=== PATIENT | female | born 1975 | race Caucasian/White ===

== ENCOUNTER 2018-06-29 10:59 | Emergency (ER) | payer OTHER, MEDICAID, SELFPAY ==
[2018-06-29 11:00] VITALS: BP 136/76; PULSE 90; RESP 12; TEMP 37.2; O2SAT 99
--- NOTE | 2018-06-29 11:15 | ED.ABDPAIN ---
HPI - Abdominal Pain General Chief Complaint: Abdominal Pain Stated Complaint: 'SOMETHING IS STABBING ME' Time Seen by Provider: 06/29/18 11:11 Source: patient Mode of arrival: ambulatory Limitations: no limitations History of Present Illness HPI narrative: 42-year-old female, nonsmoker presents with a chief complaint of severe epigastric and right upper quadrant pain that started this morning. She states it is worse with motion and palpation, improved with rest and radiates to her back. She denies nausea, vomiting or diarrhea. She has had gallbladder trouble in the past but not in many years. She did drink more than normal last night as it was her day off but pain did not start until this morning. She had some coffee with [employer] at about 8:00 a.m. this morning but is otherwise NPO MD complaint: abdominal pain Onset (ago): hour(s) Pain Consistency: constant Location: RUQ Severity: severe Quality: cramping and aching Radiation: epigastric and back Relieving factors: rest Exacerbating factors: movement Associated symptoms: nausea Related Data Home Medications Medication Instructions Recorded Confirmed cyclobenzaprine 10 mg tablet 10 mg PO TID PRN 04/27/18 06/29/18 Mucinex 1 tab PO PRN PRN 06/29/18 06/29/18 omeprazole 20 mg PO DAILY 06/29/18 06/29/18 Previous Rx's Medication Instructions Recorded fluoxetine 40 mg capsule 40 mg PO DAILY #90 cap 04/27/18 oxycodone-acetaminophen 5 mg-325 1 tab PO Q4-6H PRN #20 tab 04/27/18 mg tablet pantoprazole [Protonix] 40 mg PO BID #60 tab 06/29/18 sucralfate [Carafate] 1 gram PO QACHS #30 tab 06/29/18 Allergies Allergy/AdvReac Type Severity Reaction Status Date / Time ibuprofen AdvReac Mild Ulcers Verified 06/29/18 11:08 Review of Systems Review of Systems All systems reviewed & are unremarkable except as noted in HPI and below Constitutional Denies chills, Denies fever(s), Denies lethargy and Denies weakness Eyes Denies change in vision, Denies eye discharge, Denies irritation and Denies loss of vision ENT Ears, Nose, Mouth, and Throat: Denies change in voice, Denies neck pain and Denies sore throat Cardiovascular Denies chest pain, Denies irregular heart rhythm, Denies lightheadedness, Denies palpitations, Denies dyspnea, Denies dyspnea on exertion and Denies orthopnea Respiratory Denies cough, Denies dyspnea, Denies dyspnea on exertion and Denies wheezing Gastrointestinal Gastrointestinal: Reports abdominal pain, Denies change in bowel habits, Denies diarrhea, Denies nausea and Denies vomiting Genitourinary Denies hematuria, Denies flank pain, Denies urinary incontinence and Denies urinary urgency Musculoskeletal Denies neck pain Integumentary/Breasts Denies pruritus, Denies erythema, Denies rash and Denies wounds Neurologic Denies confusion, Denies loss of vision and Denies weakness Psychiatric Denies anxiety, Denies confusion, Denies depression, Denies homicidal ideation and Denies suicidal ideation Endocrine Denies palpitations Hematologic/Lymphatic Denies easy bruising Allergic/Immunologic Denies wheezing [facility] Medical History Anemia (Chronic) Carpal tunnel syndrome (Chronic) Cervical spine disease (Chronic) Chronic back pain (Chronic) Chronic headaches (Chronic) Depression (Chronic) Fibromyalgia (Chronic) Migraines (Chronic) History of chicken pox (Resolved ~1980) History of painful menstruation (Resolved) Ovarian cyst (Resolved) Surgical History History of (Resolved ~1998) History of carpal tunnel surgery (Resolved ~2007) History of cervical discectomy (Resolved ~2005) History of lumbar discectomy (Resolved ~2002) History of partial hysterectomy (Resolved ~2013) Hx of hysterectomy, total (Resolved) Family History Father Cancer Mother No problems noted. Brother No problems noted. Brother No problems noted. Sister No problems noted. Sister No problems noted. Grandfather No problems noted. Grandmother No problems noted. Grandfather No problems noted. Grandmother No problems noted. Son No problems noted. Social History Smoking Status: Former smoker Tobacco: How many years used: 30 alcohol intake: current (occasional) Exam Narrative Exam Narrative: 42-year-old female, obviously quite uncomfortable, clutching her abdomen Initial Vital Signs Initial Vital Signs: Vital Signs Temperature 99.0 F 06/29/18 11:00 Pulse Rate 90 06/29/18 11:00 Respiratory Rate 12 06/29/18 11:00 Blood Pressure 136/76 06/29/18 11:00 Pulse Oximetry 99 06/29/18 11:00 Const General: cooperative, well developed and acute distress Nutritional Appearance: well nourished Orientation: alert, awake, oriented x3 and not confused [facility] Head: normocephalic and atraumatic Ears: external ears normal and TM's normal bilaterally Nose: external nose normal and No nasal discharge Face and sinus: sinuses nontender, face symmetric, no sinus tenderness and No dry mucous membranes Mouth: oral mucosae normal and moist mucous membranes Teeth and gingiva: dentition normal Throat: tonsils normal and uvula midline Neck Neck: normal visual inspection, trachea midline, No lymphadenopathy, No midline deformity and No JVD Lymphatic: No lymphedema Chest Chest: normal inspection of the chest Cardio Rate: regular rate Rhythm: regular rhythm Heart Sounds: no click, no gallops, no murmurs and no rubs Pulses: normal peripheral pulses GI Inspection: non-distended Palpation: soft, no hepatosplenomegaly, guarding, No pulsatile mass and tender (Quite tender in epigastrium and right upper quadrant with localized guarding) Auscultation: normal bowel sounds Back/Spine/Pelvis Back: No CVA tenderness Cervical Spine: cervical ROM normal and No pain with cervical ROM Thoracic/Lumbar Spine: thoracic and lumbar spine normal to inspection Neuro General: alert, oriented x3, gait normal and no focal motor deficits Speech: speech normal Psych Appearance: well kempt Mental Status: mental status grossly normal Attitude: cooperative Thought Content: normal and suicidality Judgment: judgment good Course Orders Ordered: ED Orders 06/29/18 11:14 US abdomen complete Stat 06/29/18 11:35 Complete Blood Count AUTO DIFF Stat Comprehensive Metabolic Panel Stat Lipase Stat 06/29/18 12:35 CT abdomen pelvis w con Stat 06/29/18 13:33 Urine Culture Stat Urine Microscopic Stat 06/29/18 14:28 Alkaline Phosphatase Stat Bilirubin Total Stat Lipase Stat Discontinued Medications Al Hydrox/Mg Hydrox/Simethicone 20 ml/ Lidocaine HCl 15 ml 0 ml PO NOW ONE Stop: 06/29/18 14:36 Last Admin: 06/29/18 15:02 Dose: 35 ml Hydromorphone HCl (Dilaudid) 1 mg IV Q15M TITI Stop: 06/29/18 11:31 Last Admin: 06/29/18 11:56 Dose: 1 mg Admin: 06/29/18 11:43 Dose: 1 mg Hydromorphone HCl (Dilaudid) 1 mg IV NOW ONE Stop: 06/29/18 14:14 Last Admin: 06/29/18 14:15 Dose: 1 mg Sodium Chloride (Normal Saline 0.9%) 1,000 mls @ 1,000 mls/hr IV BOLUS ONE Stop: 06/29/18 12:12 Last Infusion: 06/29/18 13:19 Dose: 0 mls/hr Admin: 06/29/18 11:44 Dose: 1,000 mls/hr Ondansetron HCl (Zofran) 4 mg IV NOW ONE Stop: 06/29/18 11:14 Last Admin: 06/29/18 11:43 Dose: 4 mg Reevaluation(s) Reevaluation #1: minimal improvement after multiple doses of Dilaudid Reevaluation #2: patient has near complete resolution of symptoms after GI cocktail Consultations Consultation #1: call to Gen surgery after initial exam and US, requests CT. Upon receipt he suggests pain control and DC with follow up Consultation #2: Call to GI at [facility] for completeness whom recommends HIDA at some point with follow up, but despite description of findings suggests a GI cocktail and if helpful recommends PPI given BID and carafate Vital Signs - 8 hr 06/29/18 11:00 06/29/18 12:00 06/29/18 15:49 Temperature 99.0 F Pulse Rate 90 99 H 92 H Respiratory Rate 12 15 Blood Pressure 136/76 127/89 Blood Pressure [Right Arm] 137/87 Pulse Oximetry 99 92 97 MDM - Abdominal Pain Differential Diagnosis Differential diagnosis: Likely abdominal pain, acute appendicitis, pancreatitis and small bowel obstruction Medical Records Attestation: I reviewed the patient's medical records. Lab Data Attestation: I reviewed the patient's lab results. Result diagrams: 06/29/18 11:35 06/29/18 11:35 Lab Results 06/29/18 06/29/18 06/29/18 Range/Units 11:35 11:35 13:33 WBC 12.1 H (4.5-11.0) X10^3/uL RBC 4.47 (4.0-5.2) X10^6/uL Hgb 14.5 (12.0-16.0) g/dL Hct 43.2 (36-46) % MCV 96.6 (80-100) fL MCH 32.5 (26-34) PG MCHC 33.7 (30-36) % RDW 13.7 (11.6-14.8) % Plt Count 274 (150-400) X10^3/uL Neut % (Auto) 75.5 H (50-75) % Lymph % (Auto) 18.5 L (25-40) % Norman % (Auto) 4.7 (3-14) % Eos % (Auto) 0.7 L (2-4) % Baso % (Auto) 0.6 (0-2) % Neut # (Auto) 9100 H (2671-1352) /uL Sodium 142 (137-145) mmol/L Potassium 4.2 (3.4-5.1) mmol/L Chloride 103 (98-107) mmol/L Carbon Dioxide 23 (22-32) mmol/L BUN 16 (7-17) mg/dL Creatinine 0.70 (0.52-1.04) mg/dL Estimated GFR > 60.0 (>60) mL/min BUN/Creatinine Ratio 22.9 H (6-22) Glucose 96 (70-100) mg/dL Calcium 9.6 (8.4-10.2) mg/dL Total Bilirubin 0.7 (0.2-1.3) mg/dL AST 61 H (14-36) IU/L ALT 91 H (9-52) IU/L Alkaline Phosphatase 108 (38-126) U/L Total Protein 8.5 H (6.3-8.2) g/dL Albumin 4.9 (3.5-5.0) g/dL Globulin 3.6 (1.7-4.1) g/dL Albumin/Globulin Ratio 1.4 (1.0-2.8) Lipase 99 (23-300) U/L Urine RBC 5-10/hpf H (0-5/HPF) Urine WBC 5-10/hpf H (0-5/HPF) Urine Bacteria None seen (None) Ur Culture Indicated? Specimen cultured Micro UA Comment Not Reportable 06/29/18 Range/Units 14:28 WBC (4.5-11.0) X10^3/uL RBC (4.0-5.2) X10^6/uL Hgb (12.0-16.0) g/dL Hct (36-46) % MCV (80-100) fL MCH (26-34) PG MCHC (30-36) % RDW (11.6-14.8) % Plt Count (150-400) X10^3/uL Neut % (Auto) (50-75) % Lymph % (Auto) (25-40) % Norman % (Auto) (3-14) % Eos % (Auto) (2-4) % Baso % (Auto) (0-2) % Neut # (Auto) (7698-9878) /uL Sodium (137-145) mmol/L Potassium (3.4-5.1) mmol/L Chloride (98-107) mmol/L Carbon Dioxide (22-32) mmol/L BUN (7-17) mg/dL Creatinine (0.52-1.04) mg/dL Estimated GFR (>60) mL/min BUN/Creatinine Ratio (6-22) Glucose (70-100) mg/dL Calcium (8.4-10.2) mg/dL Total Bilirubin 0.6 (0.2-1.3) mg/dL AST (14-36) IU/L ALT (9-52) IU/L Alkaline Phosphatase 93 (38-126) U/L Total Protein (6.3-8.2) g/dL Albumin (3.5-5.0) g/dL Globulin (1.7-4.1) g/dL Albumin/Globulin Ratio (1.0-2.8) Lipase 78 (23-300) U/L Urine RBC (0-5/HPF) Urine WBC (0-5/HPF) Urine Bacteria (None) Ur Culture Indicated? Micro UA Comment Point of care testing: Urine Dip Bedside Urine Glucose Negative Bedside Urine Bilirubin - Negative Bedside Urine Ketone - Negative Urine Specific Brewer 1.020 Bedside Urine Occult Blood +++ Bedside Urine pH 6.0 Bedside Urine Protein - Negative Bedside Urine Urobilinogen - Negative Bedside Urine Nitrite - Negative Bedside Urine Leukocytes - Negative Esterase Imaging Data US - abdomen: Radiologist's impression: [address] [address] Ultrasound Report Signed Patient: Rosie White [facility]#: [id number] : 1975Acct:[id number] Age/Sex: 42 / FDate of Service: 06/29/18 Loc: ED Accession Number: [id number] Procedure: US abdomen complete Ordering Provider: James Johnson D.O. PROCEDURE: US ABDOMEN COMPLETE INDICATIONS: EPIGASTRIC PAIN RADIATING TO BACK TECHNIQUE: Real-time scanning was performed of the abdominal and retroperitoneal organs, with image documentation. COMPARISON: None. FINDINGS: Liver: The liver is difficult to evaluate related to diffusely increased echogenicity of the hepatic parenchyma when compared to the right kidney. This does result in severe limitation in evaluating the liver parenchyma for liver lesions. No obvious lesion is evident on the provided images. The liver is borderline enlarged at 18.9 cm in craniocaudal dimension. Gallbladder: The gallbladder is normal in size without gallbladder wall thickening, pericholecystic fluid, or cholelithiasis. Biliary ducts: Intrahepatic bile ducts are non-dilated. Extrahepatic bile duct caliber measures 8 mm. Normal is 6-7 mm or less in diameter, or 10 mm or less post-cholecystectomy. Pancreas: Obscured by overlying bowel gas. Spleen: Spleen is normal in size and homogeneous in echotexture. Kidneys: Kidneys are normal in size and echotexture. Right kidney measures 11.5 cm long; left kidney measures 12.1 cm long. No hydronephrosis or nephrolithiasis. No solid masses. Aorta: Visualized aorta is normal in caliber at less than 3 cm. Iliacs: Proximal common iliac arteries are normal in caliber at less than 2.5 cm. IVC: Intrahepatic inferior vena cava is patent. Miscellaneous: No free abdominal fluid. IMPRESSION: 1. No cholelithiasis or evidence of acute cholecystitis. 2. Nonspecific enlargement of the common bile duct is unusual for the patient's age. If there is clinical concern for choledocholithiasis, please consider MRCP for further evaluation. 3. Prominently increased echogenicity of the liver is most likely related to hepatic steatosis. Please correlate clinically. Dictated by: Malcolm Cunningham M.D. on 06/29/2018 at 11:15 Approved by: Malcolm Cunningham M.D. on 06/29/2018 at 11:16 CT scan - abdomen: Radiologist's impression: [address] [address] [address] Scan Report Signed Patient: Rosie White [facility]#: [id number] : 1975Acct:[id number] Age/Sex: 42 / FDate of Service: 06/29/18 Loc: ED Accession Number: [id number] Procedure: CT abdomen pelvis w con Ordering Provider: James Johnson D.O. PROCEDURE: CT ABDOMEN PELVIS W CON INDICATIONS: severe abdominal pain TECHNIQUE: After the administration of intravenous contrast, 5 mm thick sections acquired from the diaphragm to the symphysis. 5 mm coronal and sagittal reformats were acquired. For radiation dose reduction, the following was used: automated exposure control, adjustment of mA and/or kV according to patient size. COMPARISON: [facility], , US ABDOMEN COMPLETE, 06/29/2018, 11:43. FINDINGS: Image quality: Excellent. ABDOMEN: Lung bases: Lung bases are clear. Heart size is normal. Solid organs: The liver is noted to be diffusely hypodense when compared to the spleen. Mild prominence of the wall of the gallbladder is noted. The no focal liver lesions are identified. The common bile duct is prominent in size and measures up to approximately 8 mm in diameter, which is unusual for the patient's age. Questionable gallbladder wall thickening may be present. The spleen is unremarkable. The pancreas and adrenals are within normal limits. The kidneys are unremarkable. Peritoneum and bowel: The stomach is within normal limits. There is a small diverticulum involving the 2nd portion of the duodenum. Otherwise, the duodenum is within normal limits. The small bowel loops are nondilated. The appendix is well-visualized and normal. Moderate residual stool is identified throughout the colon. There is no bowel obstruction. No free fluid, loculated fluid collection or free air is evident. Nodes and vessels: No retroperitoneal or mesenteric adenopathy by size criteria. Aorta and inferior vena cava are normal in size. A retroaortic left renal vein is incidentally noted. Mild atherosclerosis is identified involving the lower abdominal aorta. Bones: No acute fractures or suspicious osseous lesions are evident involving the osseous structures of the abdomen. Age-appropriate degenerative changes of the lower lumbar spine are noted. 2 leads from a spinal stimulator apparatus are seen entering the dorsal aspect of the central canal at the levels of L2 and L1 respectively with the tips terminating at the T8 level. Imaged portions of the wires appear to be intact. Incidental note is made of a moderate sized bony protuberance along the posterior aspect of the right inferior T9 vertebral body, which does result in mild central canal narrowing, but not adequately characterized on this study. PELVIS: Genitourinary: Bladder wall thickness is normal. Miscellaneous: No inguinal hernias or adenopathy. Bones: No suspicious bony lesions. No acute pelvic fractures are evident. There are mild degenerative changes of the sacroiliac joints and bilateral hips. Bone islands within the bilateral femoral heads are present. IMPRESSION: 1. Mild prominence of the wall of the gallbladder was not appreciated on the ultrasound, which is felt to be related to the increased echogenicity of the liver on the recent ultrasound. This does raise the suspicion for possible cholecystitis, particularly given enlargement of the common bile duct. MRCP would be helpful to exclude choledocholithiasis. Clinical correlation to exclude acute cholecystitis or acalculus cholecystitis is recommended. 2. Hepatic steatosis. 3. Small duodenal diverticulum is of doubtful significance. 4. Normal appendix. 5. Moderate residual stool within the colon there are present constipation. No bowel obstruction. 6. Spinal stimulator leads appear to be intact and normally positioned Dictated by: Malcolm Cunningham M.D. on 06/29/2018 at 11:51 Discharge Plan Departure Patient Disposition: Home Clinical Impression: Abdominal pain Discharge Date/Time: 06/29/18 15:52 Interventions: ED Discharge Assessment Last Done: 06/29/18 15:49 Instructions: DI for Dyspepsia Activity Restrictions/Additional Instructions: *You have been diagnosed with [ severe dyspepsia ] *What to do: *Take medications as directed. Electronically transmitted to [facility] [employer] based on your prior requests *Follow up with your primary care provider in 2-3 days, call for an appointment. Let them know you were seen in the Emergency Department and that we ask that you be seen in follow up *Return to ER if you should have any new, worsening or concerning symptoms Prescriptions: New sucralfate [Carafate] 1 gram tablet 1 gram PO QACHS Qty: 30 RF: 0 pantoprazole [Protonix] 40 mg tablet,delayed release (DR/EC) 40 mg PO BID Qty: 60 RF: 0 No Action cyclobenzaprine 10 mg tablet 10 mg PO TID PRN (Reason: Spasms) RF: 0 fluoxetine [Prozac] 40 mg capsule 40 mg PO DAILY Qty: 90 RF: 3 oxycodone-acetaminophen [Endocet] 5-325 mg tablet 1 tab PO Q4-6H PRN (Reason: pain) Qty: 20 RF: 0 omeprazole 20 mg Tablet,Delayed Release (Dr/Ec) 20 mg PO DAILY RF: 0 Mucinex 1 tab PO PRN PRN (Reason: Congestion) RF: 0 Referrals: Karel Watson MD [Non-Staff] - Aniya Lima DO [Primary Care Provider] -
--- NOTE | 2018-06-29 11:32 | ED_ITS ---
HPI - Abdominal Pain General Chief Complaint: Abdominal Pain Stated Complaint: 'SOMETHING IS STABBING ME' Time Seen by Provider: 06/29/18 11:11 Source: patient Mode of arrival: ambulatory Limitations: no limitations History of Present Illness HPI narrative: 42-year-old female, nonsmoker presents with a chief complaint of severe epigastric and right upper quadrant pain that started this morning. She states it is worse with motion and palpation, improved with rest and radiates to her back. She denies nausea, vomiting or diarrhea. She has had gallbladder trouble in the past but not in many years. She did drink more than normal last night as it was her day off but pain did not start until this morning. She had some coffee with [employer] at about 8:00 a.m. this morning but is otherwise NPO MD complaint: abdominal pain Onset (ago): hour(s) Pain Consistency: constant Location: RUQ Severity: severe Quality: cramping and aching Radiation: epigastric and back Relieving factors: rest Exacerbating factors: movement Associated symptoms: nausea Related Data Home Medications Medication Instructions Recorded Confirmed cyclobenzaprine 10 mg tablet 10 mg PO TID PRN 04/27/18 06/29/18 Mucinex 1 tab PO PRN PRN 06/29/18 06/29/18 omeprazole 20 mg PO DAILY 06/29/18 06/29/18 Previous Rx's Medication Instructions Recorded fluoxetine 40 mg capsule 40 mg PO DAILY #90 cap 04/27/18 oxycodone-acetaminophen 5 mg-325 1 tab PO Q4-6H PRN #20 tab 04/27/18 mg tablet pantoprazole [Protonix] 40 mg PO BID #60 tab 06/29/18 sucralfate [Carafate] 1 gram PO QACHS #30 tab 06/29/18 Allergies Allergy/AdvReac Type Severity Reaction Status Date / Time ibuprofen AdvReac Mild Ulcers Verified 06/29/18 11:08 Review of Systems Review of Systems All systems reviewed & are unremarkable except as noted in HPI and below Constitutional Denies chills, Denies fever(s), Denies lethargy and Denies weakness Eyes Denies change in vision, Denies eye discharge, Denies irritation and Denies loss of vision ENT Ears, Nose, Mouth, and Throat: Denies change in voice, Denies neck pain and Denies sore throat Cardiovascular Denies chest pain, Denies irregular heart rhythm, Denies lightheadedness, Denies palpitations, Denies dyspnea, Denies dyspnea on exertion and Denies orthopnea Respiratory Denies cough, Denies dyspnea, Denies dyspnea on exertion and Denies wheezing Gastrointestinal Gastrointestinal: Reports abdominal pain, Denies change in bowel habits, Denies diarrhea, Denies nausea and Denies vomiting Genitourinary Denies hematuria, Denies flank pain, Denies urinary incontinence and Denies urinary urgency Musculoskeletal Denies neck pain Integumentary/Breasts Denies pruritus, Denies erythema, Denies rash and Denies wounds Neurologic Denies confusion, Denies loss of vision and Denies weakness Psychiatric Denies anxiety, Denies confusion, Denies depression, Denies homicidal ideation and Denies suicidal ideation Endocrine Denies palpitations Hematologic/Lymphatic Denies easy bruising Allergic/Immunologic Denies wheezing [facility] Medical History Anemia (Chronic) Carpal tunnel syndrome (Chronic) Cervical spine disease (Chronic) Chronic back pain (Chronic) Chronic headaches (Chronic) Depression (Chronic) Fibromyalgia (Chronic) Migraines (Chronic) History of chicken pox (Resolved ~1980) History of painful menstruation (Resolved) Ovarian cyst (Resolved) Surgical History History of (Resolved ~1998) History of carpal tunnel surgery (Resolved ~2007) History of cervical discectomy (Resolved ~2005) History of lumbar discectomy (Resolved ~2002) History of partial hysterectomy (Resolved ~2013) Hx of hysterectomy, total (Resolved) Family History Father Cancer Mother No problems noted. Brother No problems noted. Brother No problems noted. Sister No problems noted. Sister No problems noted. Grandfather No problems noted. Grandmother No problems noted. Grandfather No problems noted. Grandmother No problems noted. Son No problems noted. Social History Smoking Status: Former smoker Tobacco: How many years used: 30 alcohol intake: current (occasional) Exam Narrative Exam Narrative: 42-year-old female, obviously quite uncomfortable, clutching her abdomen Initial Vital Signs Initial Vital Signs: Vital Signs Temperature 99.0 F 06/29/18 11:00 Pulse Rate 90 06/29/18 11:00 Respiratory Rate 12 06/29/18 11:00 Blood Pressure 136/76 06/29/18 11:00 Pulse Oximetry 99 06/29/18 11:00 Const General: cooperative, well developed and acute distress Nutritional Appearance: well nourished Orientation: alert, awake, oriented x3 and not confused [facility] Head: normocephalic and atraumatic Ears: external ears normal and TM's normal bilaterally Nose: external nose normal and No nasal discharge Face and sinus: sinuses nontender, face symmetric, no sinus tenderness and No dry mucous membranes Mouth: oral mucosae normal and moist mucous membranes Teeth and gingiva: dentition normal Throat: tonsils normal and uvula midline Neck Neck: normal visual inspection, trachea midline, No lymphadenopathy, No midline deformity and No JVD Lymphatic: No lymphedema Chest Chest: normal inspection of the chest Cardio Rate: regular rate Rhythm: regular rhythm Heart Sounds: no click, no gallops, no murmurs and no rubs Pulses: normal peripheral pulses GI Inspection: non-distended Palpation: soft, no hepatosplenomegaly, guarding, No pulsatile mass and tender ( Quite tender in epigastrium and right upper quadrant with localized guarding) Auscultation: normal bowel sounds Back/Spine/Pelvis Back: No CVA tenderness Cervical Spine: cervical ROM normal and No pain with cervical ROM Thoracic/Lumbar Spine: thoracic and lumbar spine normal to inspection Neuro General: alert, oriented x3, gait normal and no focal motor deficits Speech: speech normal Psych Appearance: well kempt Mental Status: mental status grossly normal Attitude: cooperative Thought Content: normal and suicidality Judgment: judgment good Course Orders Ordered: ED Orders 06/29/18 11:14 US abdomen complete Stat 06/29/18 11:35 Complete Blood Count AUTO DIFF Stat Comprehensive Metabolic Panel Stat Lipase Stat 06/29/18 12:35 CT abdomen pelvis w con Stat 06/29/18 13:33 Urine Culture Stat Urine Microscopic Stat 06/29/18 14:28 Alkaline Phosphatase Stat Bilirubin Total Stat Lipase Stat Discontinued Medications Al Hydrox/Mg Hydrox/Simethicone 20 ml/ Lidocaine HCl 15 ml 0 ml PO NOW ONE Stop: 06/29/18 14:36 Last Admin: 06/29/18 15:02 Dose: 35 ml Hydromorphone HCl (Dilaudid) 1 mg IV Q15M TITI Stop: 06/29/18 11:31 Last Admin: 06/29/18 11:56 Dose: 1 mg Admin: 06/29/18 11:43 Dose: 1 mg Hydromorphone HCl (Dilaudid) 1 mg IV NOW ONE Stop: 06/29/18 14:14 Last Admin: 06/29/18 14:15 Dose: 1 mg Sodium Chloride (Normal Saline 0.9%) 1,000 mls @ 1,000 mls/hr IV BOLUS ONE Stop: 06/29/18 12:12 Last Infusion: 06/29/18 13:19 Dose: 0 mls/hr Admin: 06/29/18 11:44 Dose: 1,000 mls/hr Ondansetron HCl (Zofran) 4 mg IV NOW ONE Stop: 06/29/18 11:14 Last Admin: 06/29/18 11:43 Dose: 4 mg Reevaluation(s) Reevaluation #1: minimal improvement after multiple doses of Dilaudid Reevaluation #2: patient has near complete resolution of symptoms after GI cocktail Consultations Consultation #1: call to Gen surgery after initial exam and US, requests CT. Upon receipt he suggests pain control and DC with follow up Consultation #2: Call to GI at [facility] for completeness whom recommends HIDA at some point with follow up, but despite description of findings suggests a GI cocktail and if helpful recommends PPI given BID and carafate Vital Signs - 8 hr 06/29/18 11:00 06/29/18 12:00 06/29/18 15:49 Temperature 99.0 F Pulse Rate 90 99 H 92 H Respiratory Rate 12 15 Blood Pressure 136/76 127/89 Blood Pressure [Right Arm] 137/87 Pulse Oximetry 99 92 97 MDM - Abdominal Pain Differential Diagnosis Differential diagnosis: Likely abdominal pain, acute appendicitis, pancreatitis and small bowel obstruction Medical Records Attestation: I reviewed the patient's medical records. Lab Data Attestation: I reviewed the patient's lab results. Result diagrams: 06/29/18 11:35 06/29/18 11:35 Lab Results 06/29/18 06/29/18 06/29/18 Range/Units 11:35 11:35 13:33 WBC 12.1 H (4.5-11.0) X10^3/uL RBC 4.47 (4.0-5.2) X10^6/uL Hgb 14.5 (12.0-16.0) g/dL Hct 43.2 (36-46) % MCV 96.6 (80-100) fL MCH 32.5 (26-34) PG MCHC 33.7 (30-36) % RDW 13.7 (11.6-14.8) % Plt Count 274 (150-400) X10^3/uL Neut % (Auto) 75.5 H (50-75) % Lymph % (Auto) 18.5 L (25-40) % [place] % (Auto) 4.7 (3-14) % Eos % (Auto) 0.7 L (2-4) % Baso % (Auto) 0.6 (0-2) % Neut # (Auto) 9100 H (1806-4307) /uL Sodium 142 (137-145) mmol/L Potassium 4.2 (3.4-5.1) mmol/L Chloride 103 (98-107) mmol/L Carbon Dioxide 23 (22-32) mmol/L BUN 16 (7-17) mg/dL Creatinine 0.70 (0.52-1.04) mg/dL Estimated GFR > 60.0 (>60) mL/min BUN/Creatinine Ratio 22.9 H (6-22) Glucose 96 (70-100) mg/dL Calcium 9.6 (8.4-10.2) mg/dL Total Bilirubin 0.7 (0.2-1.3) mg/dL AST 61 H (14-36) IU/L ALT 91 H (9-52) IU/L Alkaline Phosphatase 108 (38-126) U/L Total Protein 8.5 H (6.3-8.2) g/dL Albumin 4.9 (3.5-5.0) g/dL Globulin 3.6 (1.7-4.1) g/dL Albumin/Globulin Ratio 1.4 (1.0-2.8) Lipase 99 (23-300) U/L Urine RBC 5-10/hpf H (0-5/HPF) Urine WBC 5-10/hpf H (0-5/HPF) Urine Bacteria None seen (None) Ur Culture Indicated? Specimen cultured Micro UA Comment Not Reportable 06/29/18 Range/Units 14:28 WBC (4.5-11.0) X10^3/uL RBC (4.0-5.2) X10^6/uL Hgb (12.0-16.0) g/dL Hct (36-46) % MCV (80-100) fL MCH (26-34) PG MCHC (30-36) % RDW (11.6-14.8) % Plt Count (150-400) X10^3/uL Neut % (Auto) (50-75) % Lymph % (Auto) (25-40) % [place] % (Auto) (3-14) % Eos % (Auto) (2-4) % Baso % (Auto) (0-2) % Neut # (Auto) (0722-5185) /uL Sodium (137-145) mmol/L Potassium (3.4-5.1) mmol/L Chloride (98-107) mmol/L Carbon Dioxide (22-32) mmol/L BUN (7-17) mg/dL Creatinine (0.52-1.04) mg/dL Estimated GFR (>60) mL/min BUN/Creatinine Ratio (6-22) Glucose (70-100) mg/dL Calcium (8.4-10.2) mg/dL Total Bilirubin 0.6 (0.2-1.3) mg/dL AST (14-36) IU/L ALT (9-52) IU/L Alkaline Phosphatase 93 (38-126) U/L Total Protein (6.3-8.2) g/dL Albumin (3.5-5.0) g/dL Globulin (1.7-4.1) g/dL Albumin/Globulin Ratio (1.0-2.8) Lipase 78 (23-300) U/L Urine RBC (0-5/HPF) Urine WBC (0-5/HPF) Urine Bacteria (None) Ur Culture Indicated? Micro UA Comment Point of care testing: Urine Dip Bedside Urine Glucose Negative Bedside Urine Bilirubin - Negative Bedside Urine Ketone - Negative Urine Specific [place] 1.020 Bedside Urine Occult Blood +++ Bedside Urine pH 6.0 Bedside Urine Protein - Negative Bedside Urine Urobilinogen - Negative Bedside Urine Nitrite - Negative Bedside Urine Leukocytes - Negative Esterase Imaging Data US - abdomen: Radiologist's impression: [address] [address] Ultrasound Report Signed Patient: Rosie White [facility]#: [id number] : 1975Acct:[id number] Age/Sex: 42 / FDate of Service: 06/29/18 Loc: ED Accession Number: [id number] Procedure: US abdomen complete Ordering Provider: James Johnson D.O. PROCEDURE: US ABDOMEN COMPLETE INDICATIONS: EPIGASTRIC PAIN RADIATING TO BACK TECHNIQUE: Real-time scanning was performed of the abdominal and retroperitoneal organs, with image documentation. COMPARISON: None. FINDINGS: Liver: The liver is difficult to evaluate related to diffusely increased echogenicity of the hepatic parenchyma when compared to the right kidney. This does result in severe limitation in evaluating the liver parenchyma for liver lesions. No obvious lesion is evident on the provided images. The liver is borderline enlarged at 18.9 cm in craniocaudal dimension. Gallbladder: The gallbladder is normal in size without gallbladder wall thickening, pericholecystic fluid, or cholelithiasis. Biliary ducts: Intrahepatic bile ducts are non-dilated. Extrahepatic bile duct caliber measures 8 mm. Normal is 6-7 mm or less in diameter, or 10 mm or less post-cholecystectomy. Pancreas: Obscured by overlying bowel gas. Spleen: Spleen is normal in size and homogeneous in echotexture. Kidneys: Kidneys are normal in size and echotexture. Right kidney measures 11.5 cm long; left kidney measures 12.1 cm long. No hydronephrosis or nephrolithiasis. No solid masses. Aorta: Visualized aorta is normal in caliber at less than 3 cm. Iliacs: Proximal common iliac arteries are normal in caliber at less than 2.5 cm. IVC: Intrahepatic inferior vena cava is patent. Miscellaneous: No free abdominal fluid. IMPRESSION: 1. No cholelithiasis or evidence of acute cholecystitis. 2. Nonspecific enlargement of the common bile duct is unusual for the patient' s age. If there is clinical concern for choledocholithiasis, please consider MRCP for further evaluation. 3. Prominently increased echogenicity of the liver is most likely related to hepatic steatosis. Please correlate clinically. Dictated by: Malcolm Cunningham M.D. on 06/29/2018 at 11:15 Approved by: Malcolm Cunningham M.D. on 06/29/2018 at 11:16 CT scan - abdomen: Radiologist's impression: [address] [address] [address] Scan Report Signed Patient: Rosie White [facility]#: [id number] : 1975Acct:[id number] Age/Sex: 42 / FDate of Service: 06/29/18 Loc: ED Accession Number: [id number] Procedure: CT abdomen pelvis w con Ordering Provider: James Johnson D.O. PROCEDURE: CT ABDOMEN PELVIS W CON INDICATIONS: severe abdominal pain TECHNIQUE: After the administration of intravenous contrast, 5 mm thick sections acquired from the diaphragm to the symphysis. 5 mm coronal and sagittal reformats were acquired. For radiation dose reduction, the following was used: automated exposure control, adjustment of mA and/or kV according to patient size. COMPARISON: [facility], , US ABDOMEN COMPLETE, 06/29/2018, 11:43. FINDINGS: Image quality: Excellent. ABDOMEN: Lung bases: Lung bases are clear. Heart size is normal. Solid organs: The liver is noted to be diffusely hypodense when compared to the spleen. Mild prominence of the wall of the gallbladder is noted. The no focal liver lesions are identified. The common bile duct is prominent in size and measures up to approximately 8 mm in diameter, which is unusual for the patient's age. Questionable gallbladder wall thickening may be present. The spleen is unremarkable. The pancreas and adrenals are within normal limits. The kidneys are unremarkable. Peritoneum and bowel: The stomach is within normal limits. There is a small diverticulum involving the 2nd portion of the duodenum. Otherwise, the duodenum is within normal limits. The small bowel loops are nondilated. The appendix is well-visualized and normal. Moderate residual stool is identified throughout the colon. There is no bowel obstruction. No free fluid, loculated fluid collection or free air is evident. Nodes and vessels: No retroperitoneal or mesenteric adenopathy by size criteria. Aorta and inferior vena cava are normal in size. A retroaortic left renal vein is incidentally noted. Mild atherosclerosis is identified involving the lower abdominal aorta. Bones: No acute fractures or suspicious osseous lesions are evident involving the osseous structures of the abdomen. Age-appropriate degenerative changes of the lower lumbar spine are noted. 2 leads from a spinal stimulator apparatus are seen entering the dorsal aspect of the central canal at the levels of L2 and L1 respectively with the tips terminating at the T8 level. Imaged portions of the wires appear to be intact. Incidental note is made of a moderate sized bony protuberance along the posterior aspect of the right inferior T9 vertebral body, which does result in mild central canal narrowing, but not adequately characterized on this study. PELVIS: Genitourinary: Bladder wall thickness is normal. Miscellaneous: No inguinal hernias or adenopathy. Bones: No suspicious bony lesions. No acute pelvic fractures are evident. There are mild degenerative changes of the sacroiliac joints and bilateral hips. Bone islands within the bilateral femoral heads are present. IMPRESSION: 1. Mild prominence of the wall of the gallbladder was not appreciated on the ultrasound, which is felt to be related to the increased echogenicity of the liver on the recent ultrasound. This does raise the suspicion for possible cholecystitis, particularly given enlargement of the common bile duct. MRCP would be helpful to exclude choledocholithiasis. Clinical correlation to exclude acute cholecystitis or acalculus cholecystitis is recommended. 2. Hepatic steatosis. 3. Small duodenal diverticulum is of doubtful significance. 4. Normal appendix. 5. Moderate residual stool within the colon there are present constipation. No bowel obstruction. 6. Spinal stimulator leads appear to be intact and normally positioned Dictated by: Malcolm Cunningham M.D. on 06/29/2018 at 11:51 Discharge Plan Departure Patient Disposition: Home Clinical Impression: Abdominal pain Discharge Date/Time: 06/29/18 15:52 Interventions: ED Discharge Assessment Last Done: 06/29/18 15:49 Instructions: DI for Dyspepsia Activity Restrictions/Additional Instructions: *You have been diagnosed with [ severe dyspepsia ] *What to do: *Take medications as directed. Electronically transmitted to [employer] in [place] based on your prior requests *Follow up with your primary care provider in 2-3 days, call for an appointment. Let them know you were seen in the Emergency Department and that we ask that you be seen in follow up *Return to ER if you should have any new, worsening or concerning symptoms Prescriptions: New sucralfate [Carafate] 1 gram tablet 1 gram PO QACHS Qty: 30 RF: 0 pantoprazole [Protonix] 40 mg tablet,delayed release (DR/EC) 40 mg PO BID Qty: 60 RF: 0 No Action cyclobenzaprine 10 mg tablet 10 mg PO TID PRN (Reason: Spasms) RF: 0 fluoxetine [Prozac] 40 mg capsule 40 mg PO DAILY Qty: 90 RF: 3 oxycodone-acetaminophen [Endocet] 5-325 mg tablet 1 tab PO Q4-6H PRN (Reason: pain) Qty: 20 RF: 0 omeprazole 20 mg Tablet,Delayed Release (Dr/Ec) 20 mg PO DAILY RF: 0 Mucinex 1 tab PO PRN PRN (Reason: Congestion) RF: 0 Referrals: Karel Watson MD [Non-Staff] - Aniya Lima DO [Primary Care Provider] -
[2018-06-29] MEDS: HYDROMORPHONE 1 MG INJ IV ×3 (11:43→14:15)
[2018-06-29] MEDS: ONDANSETRON 4 MG/2 ML INJ IV (11:43)
[2018-06-29] MEDS: SODIUM CHLORIDE 0.9% 1,000 ML 1000 ML IV (11:44)
[2018-06-29 11:51] LABS: Add Manual Diff / Slide Review NO; Basophils Percent Auto 0.6 % (0-2); Eosinophils Percent Auto 0.7 % (2-4); Hematocrit 43.2 % (36-46); Hemoglobin 14.5 g/dL (12.0-16.0); Lymphocytes Percent Auto 18.5 % (25-40); Mean Corpuscular HGB Conc 33.7 % (30-36); Mean Corpuscular Hemoglobin 32.5 PG (26-34); Mean Corpuscular Volume 96.6 fL (80-100); Monocytes Percent Auto 4.7 % (3-14); Neutrophils Absolute Auto 9100 /uL (3000-5900); Neutrophils Percent Auto 75.5 % (50-75); Platelet Count 274 X10^3/uL (150-400); Red Blood Cell Count 4.47 X10^6/uL (4.0-5.2); Red Cell Distribution Width 13.7 % (11.6-14.8); White Blood Cell Count 12.1 X10^3/uL (4.5-11.0)
[2018-06-29 12:00] VITALS: BP 137/87; PULSE 99; O2SAT 92
[2018-06-29 12:00] LABS: Alanine Aminotransferase 91 IU/L (9-52); Albumin 4.9 g/dL (3.5-5.0); Albumin Globulin Ratio 1.4 (1.0-2.8); Alkaline Phosphatase 108 U/L (38-126); Aspartate Aminotransferase 61 IU/L (14-36); BUN Creatinine Ratio 22.9 (6-22); Bilirubin Total 0.7 mg/dL (0.2-1.3); Blood Urea Nitrogen 16 mg/dL (7-17); Calcium 9.6 mg/dL (8.4-10.2); Carbon Dioxide 23 mmol/L (22-32); Chloride 103 mmol/L (98-107); Estimated Glomerular Filt Rate > 60.0 mL/min (>60); Globulin 3.6 g/dL (1.7-4.1); Glucose 96 mg/dL (70-100); HEMOLYSIS < 15 (0-50); Lipase 99 U/L (23-300); Potassium 4.2 mmol/L (3.4-5.1); Sodium 142 mmol/L (137-145); Total Protein 8.5 g/dL (6.3-8.2)
--- NOTE | 2018-06-29 12:35 | DI.CT.S_ITS ---
PROCEDURE: CT ABDOMEN PELVIS W CON INDICATIONS: severe abdominal pain TECHNIQUE: After the administration of intravenous contrast, 5 mm thick sections acquired from the diaphragm to the symphysis. 5 mm coronal and sagittal reformats were acquired. For radiation dose reduction, the following was used: automated exposure control, adjustment of mA and/or kV according to patient size. COMPARISON: [facility], , US ABDOMEN COMPLETE, 06/29/2018, 11:43. FINDINGS: Image quality: Excellent. ABDOMEN: Lung bases: Lung bases are clear. Heart size is normal. Solid organs: The liver is noted to be diffusely hypodense when compared to the spleen. Mild prominence of the wall of the gallbladder is noted. The no focal liver lesions are identified. The common bile duct is prominent in size and measures up to approximately 8 mm in diameter, which is unusual for the patient's age. Questionable gallbladder wall thickening may be present. The spleen is unremarkable. The pancreas and adrenals are within normal limits. The kidneys are unremarkable. Peritoneum and bowel: The stomach is within normal limits. There is a small diverticulum involving the 2nd portion of the duodenum. Otherwise, the duodenum is within normal limits. The small bowel loops are nondilated. The appendix is well-visualized and normal. Moderate residual stool is identified throughout the colon. There is no bowel obstruction. No free fluid, loculated fluid collection or free air is evident. Nodes and vessels: No retroperitoneal or mesenteric adenopathy by size criteria. Aorta and inferior vena cava are normal in size. A retroaortic left renal vein is incidentally noted. Mild atherosclerosis is identified involving the lower abdominal aorta. Bones: No acute fractures or suspicious osseous lesions are evident involving the osseous structures of the abdomen. Age-appropriate degenerative changes of the lower lumbar spine are noted. 2 leads from a spinal stimulator apparatus are seen entering the dorsal aspect of the central canal at the levels of L2 and L1 respectively with the tips terminating at the T8 level. Imaged portions of the wires appear to be intact. Incidental note is made of a moderate sized bony protuberance along the posterior aspect of the right inferior T9 vertebral body, which does result in mild central canal narrowing, but not adequately characterized on this study. PELVIS: Genitourinary: Bladder wall thickness is normal. Miscellaneous: No inguinal hernias or adenopathy. Bones: No suspicious bony lesions. No acute pelvic fractures are evident. There are mild degenerative changes of the sacroiliac joints and bilateral hips. Bone islands within the bilateral femoral heads are present. IMPRESSION: 1. Mild prominence of the wall of the gallbladder was not appreciated on the ultrasound, which is felt to be related to the increased echogenicity of the liver on the recent ultrasound. This does raise the suspicion for possible cholecystitis, particularly given enlargement of the common bile duct. MRCP would be helpful to exclude choledocholithiasis. Clinical correlation to exclude acute cholecystitis or acalculus cholecystitis is recommended. 2. Hepatic steatosis. 3. Small duodenal diverticulum is of doubtful significance. 4. Normal appendix. 5. Moderate residual stool within the colon there are present constipation. No bowel obstruction. 6. Spinal stimulator leads appear to be intact and normally positioned Dictated by: Malcolm Cunningham M.D. on 06/29/2018 at 11:51 Approved by: Malcolm Cunningham M.D. on 06/29/2018 at 12:00
[2018-06-29 13:37] LABS: Bacteria Urine None Seen
[2018-06-29 13:44] LABS: Culture Indicated Urine Specimen Cultured; RBC Urine 5-10/HPF (0-5/HPF); WBC Urine 5-10/HPF (0-5/HPF)
[2018-06-29 14:45] LABS: Alkaline Phosphatase 93 U/L (38-126); Bilirubin Total 0.6 mg/dL (0.2-1.3); Lipase 78 U/L (23-300)
[2018-06-29] MEDS: MAG HYDROX/ALUMINUM/SIMETH SUS 20 ML, LIDOCAINE VISCOUS 2% 15 ML PO (15:02)
[2018-06-29 15:49] VITALS: BP 127/89; PULSE 92; RESP 15; O2SAT 97
== END 2018-06-29 15:52 | disposition home or self-care (01) ==
PROVIDERS: Emergency Provider Emergency Medicine; PCP Family Medicine
DX: R10.9 Unspecified abdominal pain (principal)
CPT/HCPCS: 36415; 36591; 74177; 76700; 80053; 81003; 81015; 82247; 83690; 84075; 85025; 87086; 96361; 96374; 96375; 96376; 99283; 99285; J1170; J2405; Q9967

== ENCOUNTER 2018-08-24 07:17 | Day surgery (SDC) | payer OTHER, MEDICAID, SELFPAY ==
[2018-08-24] VITALS (8 sets, daily range): BP systolic 111–151; BP diastolic 65–91; PULSE 69–87; RESP 13–16; TEMP 36.2–36.8; O2SAT 94–100; BMI 33.2
--- NOTE | 2018-08-24 | PATH_ITS ---
[facility] Accession Number: [id number] . 01 Material submitted: . PART A: ANTRAL BIOPSY PART B: GE JUNCTION BIOPSY . 02 Diagnosis: A. Stomach, Antrum, Biopsy: Antral mucosa with mild chronic gastritis. Negative for Helicobacter by immunohistochemistry. Negative for intestinal metaplasia. Negative for dysplasia and malignancy. . B. Gastroesophageal Junction, Biopsy: Squamocolumnar junctional mucosa with mild chronic inflammation. Negative for intestinal metaplasia by alcian blue stain. Negative for dysplasia and malignancy. [facility]/08/29/2018 . 02 Electronically signed: . Jaylene Reece MD, Pathologist NPI- [id number] . 01 Gross description: . Part A: ANTRAL BIOPSY: Received in formalin are multiple fragment(s) of garcia, soft tissue measuring 0.5 x 0.5 x 0.2 cm in aggregate submitted entirely in 1 cassette(s) Part B: GE JUNCTION BIOPSY: Received in formalin are multiple fragment(s) of garcia, soft tissue measuring 0.7 x 0.5 x 0.3 cm in aggregate submitted entirely in 1 cassette(s) /CKI /CKI . 02 Microscopic: . A. An immunohistochemical stain was performed to evaluate for Helicobacter organisms and is negative. The control stain showed appropriate reactivity. . B. An AB/PAS stain was performed to evaluate for intestinal metaplasia and is negative. The control stain showed appropriate reactivity. . * This test was developed and its performance characteristics determined by [employer]. It has not been cleared or approved by the U.S. Food and Drug Administration. The FDA has determined that such clearance or approval is not necessary. This test is used for clinical purposes. It should not be regarded as investigational or for research. . 02 Pathologist provided ICD-10: R10.9 . 02 CPT . 002536, 783032, F98676, 350820 Performed at: 01 [facility] [address] [place] [address], [place], [place] [id number] MD Felton Rodriguez MD Phone: [phone] Performed at: [address] [facility] [id number] [place], [place] [id number] MD Jaylene Reece MD Phone: [phone]
[2018-08-24] MEDS: SODIUM CHLORIDE 0.9% 1,000 ML 200 ML IV (07:48)
--- NOTE | 2018-08-24 08:45 | PM.PREOP ---
Pre-operative Note Interval Note History & Physical reviewed/Exam performed by Physician: Yes Changes to H&P: No H&P completed within 30 days and has changed as indicated here:: Patient seen and examined in preoperative area. Her history physical examination is documented August 07, 2018 has not changed. We will proceed with EGD and possible dilatation under sedation today as planned. ASA Class (for procedural sedation): II
[2018-08-24] MEDS: TETRACAINE/BENZOCAINE/BUTAMBEN (CETACAINE) BOTTLE 1 SPRAY TOP (08:55)
[2018-08-24] MEDS: LIDOCAINE 4% SOLN 50 ML 20 ML TOP (08:56)
[2018-08-24] MEDS: fentaNYL 250 MCG/5 ML INJ IV (09:08)
[2018-08-24] MEDS: MIDAZOLAM 5 MG/5 ML VIAL IV (09:08)
--- NOTE | 2018-08-24 09:15 | P.OP.ENDO_ITS ---
Operative Date/Time/Diagnoses Date of procedure: 08/24/18 Time of procedure: 09:11 Pre-op diagnosis: Dysphagia and epigastric pain Post-op diagnosis: other (Mild diffuse gastritis and focal esophagitis at the gastroesophageal junction but otherwise normal upper endoscopy) Procedure & Clinicians Study performed: 1. Sedation per surgeon 2. Esophagogastroduodenoscopy with cold forceps biopsies Same procedure as scheduled: Yes Indications: 42-year-old female who presented with epigastric pain and dysphagia. She was recommended to undergo EGD with potential dilatation. Surgeon: Sonny Barboza Procedure Notes Procedure in detail: After obtaining informed consent, the patient was brought to the GI suite and placed in the left lateral decubitus position on the examination table. After placement of appropriate monitors, the patient was given incremental doses of Versed and Fentanyl until an appropriate level of sedation was achieved. A time out was held per SCOAP protocol. A bite block was gently placed between the patient's teeth. The endoscope was lubricated and then passed into the patient's posterior oropharynx. The esophagus was cannulated under direct vision and the scope was passed to the second portion of the duodenum without difficulty. The scope was then withdrawn with careful examination of all areas of the upper GI tract and mucosa. Z-line was 39 cm from the incisors. In the stomach, the instrument was retroflexed and the GE junction examined. The scope was straightened and the procedure continued with examination of the remainder of the upper GI tract. Findings are noted above. Air was aspirated from the stomach and the endoscope gently removed from the esophagus. The patient was allowed to awaken from sedation without difficulty and taken to the post-anesthesia care unit in good condition. Scope withdrawal time: Not applicable Sedation minutes: 13 Findings: gastritis, hiatal hernia (Small and likely clinically irrelevant) and other findings (Minimal esophagitis focally located at the gastroesophageal junction but otherwise normal esophagus. No evidence of strictures of any kind. ) Specimen(s): other (1. Antral biopsies 2. Gastroesophageal junction biopsies) Complications: none Recommendations: Reflux diet, Continue medication(s) (Proton pump inhibitor) and Other recommendation Plan for aftercare: 1. Discharge home 2. Follow up in surgery Clinic in 2 weeks Follow up: weeks (Two weeks with Dr. Barboza) Disposition: PACU
--- NOTE | 2018-08-24 09:23 | SUR.PHASEI ---
Dr. Barboza notified pt c/o abd pain. No new orders
--- NOTE | 2018-08-24 09:27 | SUR.PHASEI ---
pt reported 7/10 stomach pain, reported pain was present prior to the procedure.
--- NOTE | 2018-08-24 09:49 | SUR.PHASEII ---
5328 Pt drowsy, call light within reach. Water provided.
--- NOTE | 2018-08-24 10:07 | DI.RAD.S_ITS ---
PROCEDURE: XR ACUTE ABDOMEN SERIES INDICATIONS: POST EGD FILMS? TECHNIQUE: One view chest and two views of the abdomen were acquired. COMPARISON: None. FINDINGS: Surgical changes and devices: Dorsal column stimulator. Chest: Lungs are clear. Heart size is normal. No pleural effusions. No pneumoperitoneum. Abdomen: Bowel gas pattern is normal. No suspicious calcifications. Visualized solid organ contours appear normal. Bones: No suspicious bony lesions. IMPRESSION: No evidence acute abdominal process. Dictated by: Khadar Holland M.D. on 08/24/2018 at 13:00 Approved by: Khadar Holland M.D. on 08/24/2018 at 13:01
--- NOTE | 2018-08-24 10:38 | SUR.PHASEII ---
0950 RECEIVED REPORT FROM RAYMUNDO HUNTER, PT LYING ON HER RIGHT SIDE CURLED UP , C/O PAIN IN ABDOMEN, STATES IT IS WORSE THAN BEFORE BUT IN THE SAME PLACE, ABDOMEN IS SOFT AND TENDER TO TOUCH, DR MEI NOTIFIED, ABDOMINAL XRAYS ORDERED. 1022 PT RETURNED FROM XRAY, CONTINUES TO STATE SHE HAS 8/10 PAIN IN HER ABDOMEN, DR MEI IN TO SPEAK WITH PT, VSS, PT IS RESTING QUIETLY AND APPEARS COMFORTABLE.
--- NOTE | 2018-08-24 11:42 | PM.PN.1 ---
Subjective Date Patient Seen: 08/24/18 Time Patient Seen: 11:43 Interval history: Patient awoke from sedation and recovery room complaining of significant epigastric abdominal pain. On further history she states that the pain and discomfort was very similar to her preoperative symptoms. Nevertheless she did think it was slightly more severe after the EGD. She had minimal nausea but no vomiting. No pain elsewhere. No chest pain or shortness of breath. No subjective fever or chills. Exam Vital Signs (past 8 hours): - 08/24/18 07:30 08/24/18 09:14 08/24/18 09:19 Temperature 97.7 F 98.2 F Pulse Rate 78 87 82 Respiratory Rate 16 13 15 Blood Pressure 130/78 139/91 H 124/84 Pulse Oximetry 98 94 97 08/24/18 09:24 08/24/18 09:29 08/24/18 09:46 Temperature 97.2 F L Pulse Rate 83 84 82 Respiratory Rate 15 15 15 Blood Pressure 113/83 126/80 111/65 Pulse Oximetry 94 96 95 08/24/18 10:22 08/24/18 11:20 Temperature 97.3 F L Pulse Rate 84 69 Respiratory Rate 16 15 Blood Pressure 132/78 151/66 H Pulse Oximetry 100 97 Oxygen Delivery Method Room Air Oxygen Flow Rate 2 Narrative Exam Narrative: I examined the patient on 2 separate occasions. First time was in the recovery room in the 2nd was just prior to discharge. She was mildly somnolent from sedation as anticipated but was able to offer the above history. She is afebrile and hemodynamically stable in the PACU. No tachycardia. No crackles or wheezes No subcutaneous emphysema of the neck Abdomen soft, nondistended, minimally tender in the right upper quadrant but certainly without guarding or rebound. Objective Labs Labs: I obtained a stat three view abdominal series and personally reviewed the films with the staff radiologist. Her lung levy are clear. She has no evidence of free air. She has air throughout the colon. Small amount air in the small bowel remains but no dilated bowel. No air-fluid levels. The stomach is completely decompressed. Assessment & Plan Plan: Assessment/Plan Narrative: 42-year-old female with epigastric pain following EGD, but the symptoms were mostly consistent with her preoperative issues as well. She has no evidence of any complications following the EGD. She is otherwise stable. She is therefore discharged home as previously ordered. She will follow the recommendations and continue medications as prescribed. Follow-up in the surgery clinic in 2 weeks but call sooner if she has any new issues. All questions were answered to her satisfaction, and she voiced understanding. Of note, her family was not immediately available to review the above findings.
== END 2018-08-24 11:22 | disposition home or self-care (01) ==
PROVIDERS: Surgery; PCP Family Medicine; Visit Provider Specialist
PROC: 0DJ08ZZ Inspection of Upper Intestinal Tract, Via Natural or Artificial Opening Endoscopic (ICD-10-PCS; CPT 43235; principal; 2018-08-24 08:45)
DX: K20.9 Esophagitis, unspecified (principal); R13.10 Dysphagia, unspecified; K29.70 Gastritis, unspecified, without bleeding; K44.9 Diaphragmatic hernia without obstruction or gangrene; Z87.891 Personal history of nicotine dependence
CPT/HCPCS: 43239; 74022; 88305; 88313; 88342; 99152; J2250; J3010

== ENCOUNTER → 2018-09-03 09:28 | Outpatient (CLI) | payer OTHER, MEDICAID, SELFPAY ==
--- NOTE | 2018-09-03 09:28 | DI.NM.S_ITS ---
PROCEDURE: NM HIDA WITH CCK PHARMACEUTICAL: 5.2 mCi Tc-99m mebrofenin IV; 1.3 mcg CCK IV. INDICATIONS: r/o gallbladder dyskinesia. Epigastric pain TECHNIQUE: Following intravenous administration of Tc-99m mebrofenin, sequential anterior abdominal images were obtained. To evaluate the contractile response of the gallbladder in response to Cholecystokinin (CCK), sincalide (0.02 ?g/kg) was administered by slow intravenous infusion approximately 60 minutes after the administration of the radiopharmaceutical. Sequential imaging was continued for 30 minutes after the start of CCK infusion. Gallbladder ejection fraction was calculated. COMPARISON: None. FINDINGS: Biliary scan: There is normal tracer uptake and excretion by the liver. There is normal visualization of the intrahepatic ducts, common bile duct, and gallbladder. There is normal tracer transit into the duodenum. CCK stimulation: There is normal contractile response of the gallbladder to CCK infusion. The calculated gallbladder ejection fraction is 68%; normal values are above 35%. It has been shown that any patient abdominal pain after CCK administration is related to the rate of CCK injection, rather than to any underlying gallbladder disease (Clinical Nuclear Medicine 2012; 37: 63-70. Journal of Nuclear Medicine 2014; 55: 1-9). IMPRESSION: Normal gallbladder ejection fraction, normal hepatocellular uptake and excretion through the bile ducts. A source of persistent epigastric pain is not identified. Dictated by: Leighton Hilton M.D. on 09/03/2018 at 13:48 Approved by: Leighton Hilton M.D. on 09/03/2018 at 13:49
== END ==
PROVIDERS: PCP Family Medicine; Visit Provider Specialist
DX: R10.13 Epigastric pain (principal)
CPT/HCPCS: 78227; A9537; J2805

== ENCOUNTER 2019-02-19 09:58 | Emergency (ER) | payer OTHER, MEDICAID, SELFPAY ==
[2019-02-19 10:05] VITALS: BP 153/94; PULSE 75; RESP 20; TEMP 36.3; O2SAT 100
--- NOTE | 2019-02-19 10:27 | ED.BACK ---
HPI - Back Pain/Injury General Chief Complaint: Back Pain/Injury Stated Complaint: back,radiating leg pain,hard time walking Time Seen by Provider: 02/19/19 10:02 Source: patient Mode of arrival: ambulatory Limitations: no limitations History of Present Illness HPI Narrative: 43-year-old female former smoker with extensive history of back trouble presents at the request of her primary care provider for evaluation of worsening back pain. The patient had been in her normal state of health until she got up awkwardly from a couch on Monday and felt pain in her left lumbar region that radiates down her left leg. It is sharp and stabbing and worse with motion improves with rest. She denies any fever chills nor direct trauma. She does not take any blood thinners. She denies any change in control of bowel or bladder. She denies any foot drop or lower extremity weakness. She does frequently have episodes of numbness and tingling. She had the battery changed in her nerve stimulator 3 years ago and it was placed in about 2007 in [place]. Complaint: back pain Onset (ago): day(s) Duration: constant Similar Symptoms Previously: Yes Location: lumbar spine and left lower back Severity: moderate Quality: sharp and stabbing Radiation: left leg Related Data Home Medications Medication Instructions Recorded Confirmed cyclobenzaprine 10 mg tablet 10 mg PO TID PRN 04/27/18 02/19/19 omeprazole 20 mg capsule,delayed 40 mg PO DAILY 02/19/19 02/19/19 release oxycodone-acetaminophen [Endocet] 1 - 2 tab PO Q4-6H PRN 02/19/19 02/19/19 Previous Rx's Medication Instructions Recorded fluoxetine 40 mg capsule 40 mg PO DAILY #90 cap 04/27/18 sucralfate 1 gram tablet 1 gram PO QACHS #30 tab 08/29/18 diazepam [Valium] 5 mg PO BID-QID PRN #10 tab 02/19/19 ketorolac 10 mg PO Q6H PRN #14 tab 02/19/19 methylprednisolone [Medrol (Andrés)] See Rx Instructions .ROUTE 02/19/19 .COMPLEX #21 each oxycodone-acetaminophen 1 tab PO Q6H PRN #14 tab 02/19/19 Allergies Allergy/AdvReac Type Severity Reaction Status Date / Time ibuprofen AdvReac Mild Ulcers Verified 02/19/19 09:32 Review of Systems Constitutional Denies chills, Denies fever(s), Denies lethargy and Denies weakness Eyes Denies change in vision, Denies eye discharge, Denies irritation and Denies loss of vision ENT Ears, Nose, Mouth, and Throat: Denies change in voice, Denies neck pain and Denies sore throat Cardiovascular Denies chest pain, Denies irregular heart rhythm, Denies lightheadedness, Denies palpitations, Denies dyspnea, Denies dyspnea on exertion and Denies orthopnea Respiratory Denies cough, Denies dyspnea, Denies dyspnea on exertion and Denies wheezing Gastrointestinal Gastrointestinal: Denies abdominal pain, Denies change in bowel habits, Denies diarrhea, Denies nausea and Denies vomiting Genitourinary Denies hematuria, Denies flank pain, Denies urinary incontinence and Denies urinary urgency Musculoskeletal Reports abnormal gait, Reports back pain and Denies neck pain Integumentary/Breasts Denies pruritus, Denies erythema, Denies rash and Denies wounds Neurologic Reports abnormal gait, Denies confusion, Denies loss of vision and Denies weakness Psychiatric Denies anxiety, Denies confusion, Denies depression, Denies homicidal ideation and Denies suicidal ideation Endocrine Denies palpitations Hematologic/Lymphatic Denies easy bruising Allergic/Immunologic Denies wheezing PFSH Medical History Anemia (Chronic) Carpal tunnel syndrome (Chronic) Cervical spine disease (Chronic) Chronic back pain (Chronic) Chronic headaches (Chronic) Depression (Chronic) Fibromyalgia (Chronic) Migraines (Chronic) Ulcer (Chronic) History of chicken pox (Resolved ~1980) History of painful menstruation (Resolved) Ovarian cyst (Resolved) Surgical History History of (Resolved ~1998) History of carpal tunnel surgery (Resolved ~2007) History of cervical discectomy (Resolved ~2005) History of lumbar discectomy (Resolved ~2002) History of partial hysterectomy (Resolved ~2013) Hx of hysterectomy, total (Resolved) Family History Father Cancer Mother Diabetes mellitus Brother No problems noted. Brother No problems noted. Sister No problems noted. Sister No problems noted. Grandfather No problems noted. Grandmother Breast cancer Grandfather No problems noted. Grandmother No problems noted. Son No problems noted. Social History household members: family Smoking Status: Former smoker Tobacco: How many years used: 30 alcohol intake: current (occasional) Family History Father Cancer Mother Diabetes mellitus Brother No problems noted. Brother No problems noted. Sister No problems noted. Sister No problems noted. Grandfather No problems noted. Grandmother Breast cancer Grandfather No problems noted. Grandmother No problems noted. Son No problems noted. Social History household members: family Smoking Status: Former smoker Tobacco: How many years used: 30 alcohol intake: current (occasional) Exam Narrative Exam Narrative: GENERAL: 43-year-old female appears stated age, obviously uncomfortable HEAD: Atraumatic. Normocephalic. No temporal or scalp tenderness. EYES: Pupils equal round and reactive. Extraocular motions intact. ENT: Nose without bleeding, purulent drainage or septal hematoma. NECK: Trachea midline. No JVD or lymphadenopathy. Supple, nontender, no meningeal signs. CARDIOVASCULAR: Regular rate and rhythm without murmurs, gallops, or rubs. RESPIRATORY: Clear to auscultation. Breath sounds equal bilaterally. No wheezes, rales, or rhonchi. GASTROINTESTINAL: Abdomen soft, non-tender, nondistended. No hepato-splenomegaly, or palpable masses. No guarding. EXTREMITIES: No clubbing, cyanosis, or edema. No joint tenderness, effusion, or edema noted. BACK: oil distributor tender but free of any obvious external abnormalities. Patient exam notes decreased range of motion and muscle spasm, but no CVA tenderness, or vertebral point tenderness. There are no symptoms of cauda equina such as saddle anesthesia, and decreased reflexes, decreased sensation or strength. NEURO: AOx3. SKIN: No rash or erythema. Initial Vital Signs Initial Vital Signs: Vital Signs Temperature 97.3 F L 02/19/19 10:05 Pulse Rate 75 02/19/19 10:05 Respiratory Rate 20 02/19/19 10:05 Blood Pressure 153/94 H 02/19/19 10:05 Pulse Oximetry 100 02/19/19 10:05 Course Orders Ordered: Discontinued Medications Diazepam (Valium) 5 mg PO NOW ONE Stop: 02/19/19 10:41 Last Admin: 02/19/19 10:51 Dose: 5 mg Ketorolac Tromethamine (Toradol) 60 mg IM NOW ONE Stop: 02/19/19 10:41 Last Admin: 02/19/19 10:51 Dose: 60 mg Vital Signs - 8 hr 02/19/19 11:40 Pulse Rate 57 L Respiratory Rate 16 Blood Pressure [Left Arm] 114/72 Pulse Oximetry 99 MDM - Back Pain/Injury MDM Narrative Medical decision making narrative: Multiple etiologies of back pain considered including; Epidural abscess, cauda equina, mass occupying lesion, and other considered. No imaging indicated as there was no trauma. MRI considered but unable to order given spinal stimulator. Furthermore there is unlikely to be findings that would require urgent or emergent intervention as there is no indication of epidural abscess, hematoma or cauda equina as evidenced by history and physical. She has 5/5 strength in her bilateral lower extremities and 2+ patellar reflexes. No saddle anesthesia and no loss of control of bowel or bladder Discharge Plan Departure Patient Disposition: Home Clinical Impression: Acute left lumbar radiculopathy Discharge Date/Time: 02/19/19 11:56 Interventions: ED Discharge Assessment Last Done: 02/19/19 11:56 Instructions: DI for Low Back Pain Activity Restrictions/Additional Instructions: *You have been diagnosed with [acute lumbar pain with radiculopathy] *What to do: *Take medications as directed *Follow up with your primary care provider in 2-3 days, call for an appointment. Let them know you were seen in the Emergency Department and that we ask that you be seen in follow up *Return to ER if you should have any new, worsening or concerning symptoms, such as [worsening pain, fever over 101 F, loss of control of bowel or bladder, other bothersome symptoms] Prescriptions: New ketorolac 10 mg tablet 10 mg PO Q6H PRN (Reason: pain) Qty: 14 RF: 0 diazepam [Valium] 5 mg tablet 5 mg PO BID-QID PRN (Reason: muscle spasm) Qty: 10 RF: 0 oxycodone-acetaminophen 7.5-325 mg tablet 1 tab PO Q6H PRN (Reason: pain) Qty: 14 RF: 0 methylprednisolone [Medrol (Andrés)] 4 mg tablets,dose pack See Rx Instructions .ROUTE .COMPLEX Qty: 21 RF: 0 No Action cyclobenzaprine 10 mg tablet 10 mg PO TID PRN (Reason: Spasms) RF: 0 fluoxetine [Prozac] 40 mg capsule 40 mg PO DAILY Qty: 90 RF: 3 sucralfate [Carafate] 1 gram tablet 1 gram PO QACHS Qty: 30 RF: 0 omeprazole 20 mg capsule,delayed release(DR/EC) 40 mg PO DAILY RF: 0 oxycodone-acetaminophen [Endocet] 5-325 mg tablet 1 - 2 tab PO Q4-6H PRN (Reason: pain) RF: 0 Referrals: Felton Messina MD [Physician] -
--- NOTE | 2019-02-19 10:43 | PC.NURSE ---
reports, left hip pain, with nerve stimulator, with increasing pain. denies bowel/bladder issue, denies fever,vomiting. states, was dropped off by her sister, and she able to get a ride home after treatment.
[2019-02-19] MEDS: diazePAM 5 MG TABLET PO (10:51)
[2019-02-19] MEDS: KETOROLAC 60 MG/2 ML VIAL IM (10:51)
[2019-02-19 11:40] VITALS: BP 114/72; PULSE 57; RESP 16; O2SAT 99
== END 2019-02-19 11:56 | disposition home or self-care (01) ==
PROVIDERS: Emergency Provider Emergency Medicine; PCP Family Medicine
DX: M54.16 Radiculopathy, lumbar region (principal); X50.9XXA Other and unspecified overexertion or strenuous movements or postures, initial encounter
CPT/HCPCS: 96372; 99283; J1885

== ENCOUNTER → 2019-07-12 14:34 | Outpatient (CLI) | payer OTHER, MEDICAID, SELFPAY ==
--- NOTE | 2019-07-12 14:36 | DI.RAD.S_ITS ---
PROCEDURE: XR SHOULDER RT MIN 2V INDICATIONS: pain TECHNIQUE: 3 views of the shoulder were acquired. COMPARISON: None. FINDINGS: Bones: No fractures or dislocations. No suspicious bony lesions. Visualized ribs appear intact. Mild AC and glenohumeral joint degeneration. Soft tissues: No suspicious soft tissue calcifications. IMPRESSION: Mild right shoulder joint degeneration. If the patient's pain or other symptoms persist, consider further evaluation with MRI Dictated by: Chris Ross M.D. on 07/12/2019 at 15:52 Approved by: Chris Ross M.D. on 07/12/2019 at 17:09
--- NOTE | 2019-07-12 14:36 | DI.RAD.S_ITS ---
PROCEDURE: XR CERVICAL SPINE 2V OR 3V INDICATIONS: pain TECHNIQUE: 3 and view(s) of the cervical spine were acquired. COMPARISON: None. FINDINGS: Bones: No fractures or dislocations to the C7 level. The lateral masses of C1 appear intact on the odontoid view. No suspicious bony lesions. Straightening of the normal lordotic curvature. 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 Moderate narrowing of the C6-C7 disc space. Mild narrowing of the remaining cervical disc spaces. Multilevel degenerative endplate sclerosis and spurring. Diffuse facet arthropathy. Soft tissues: No prevertebral soft tissue swelling. IMPRESSION: Straightening of the normal cervical lordosis. 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 Diffuse mild to moderate cervical spondylosis and facet arthropathy Dictated by: Chris Ross M.D. on 07/12/2019 at 15:49 Approved by: Chris Ross M.D. on 07/12/2019 at 15:52
== END ==
PROVIDERS: PCP Family Medicine; Visit Provider Family Medicine
DX: M25.511 Pain in right shoulder (principal); M19.011 Primary osteoarthritis, right shoulder; M47.22 Other spondylosis with radiculopathy, cervical region; M43.22 Fusion of spine, cervical region
CPT/HCPCS: 72040; 73030

== ENCOUNTER → 2019-08-09 16:47 | Outpatient (CLI) | payer OTHER, MEDICAID, SELFPAY ==
--- NOTE | 2019-08-09 16:50 | DI.RAD.S_ITS ---
PROCEDURE: XR ELBOW LT MIN 3V INDICATIONS: LEFT elbow pain TECHNIQUE: 3 views of the elbow were acquired. COMPARISON: Right elbow plain films also obtained today. FINDINGS: Bones: No fractures or dislocations. No suspicious bony lesions. Soft tissues: No elbow joint effusion. No suspicious soft tissue calcifications. IMPRESSION: No trauma found, no effusion present. Source of pain is not seen. Dictated by: Leighton Hilton M.D. on 08/09/2019 at 17:20 Approved by: Leighton Hilton M.D. on 08/09/2019 at 17:21
--- NOTE | 2019-08-09 16:50 | DI.RAD.S_ITS ---
PROCEDURE: XR ELBOW RT MIN 3V INDICATIONS: LEFT elbow pain TECHNIQUE: 3 views of the elbow were acquired. COMPARISON: None. FINDINGS: Bones: No fractures or dislocations. No suspicious bony lesions. Soft tissues: No elbow joint effusion. No suspicious soft tissue calcifications. IMPRESSION: No trauma found. Dictated by: Leighton Hilton M.D. on 08/09/2019 at 17:20 Approved by: Leighton Hilton M.D. on 08/09/2019 at 17:20
== END ==
PROVIDERS: PCP Family Medicine; Visit Provider Family Medicine
DX: M77.10 Lateral epicondylitis, unspecified elbow (principal); M25.522 Pain in left elbow
CPT/HCPCS: 73080

== ENCOUNTER → 2019-08-26 08:29 | Outpatient (CLI) | payer OTHER, MEDICAID, SELFPAY ==
[2019-08-26 09:26] LABS: Influenza A - CEPHEID Flu A NEGATIVE (NEGATIVE); Influenza B - CEPHEID Flu B NEGATIVE (NEGATIVE)
[2019-08-26 09:45] LABS: Strep Grp A by PCR Rapid Negative
== END ==
PROVIDERS: PCP Family Medicine; Visit Provider Physician Assistant
DX: R68.89 Other general symptoms and signs (principal); J02.9 Acute pharyngitis, unspecified
CPT/HCPCS: 87070; 87502; 87651

== ENCOUNTER → 2019-11-13 11:48 | Outpatient (CLI) | payer OTHER, MEDICAID, SELFPAY ==
--- NOTE | 2019-11-13 11:51 | DI.RAD.S_ITS ---
PROCEDURE: XR LUMBAR SPINE 2-3V INDICATIONS: back pain TECHNIQUE: 3 views of the lumbar spine were acquired. COMPARISON: None. FINDINGS: Bones: 5 [id number] vertebrae are present. Straightening of normal lumbar lordosis which may be due to patient positioning and/or concurrent muscle spasms. No acute vertebral body compression fractures. No suspicious bony lesions. A neural stimulator device projects over the left sacroiliac joint with electrodes extending cephalad to the level of the lower thoracic spine. Multilevel lumbar spondylitic changes are visualized with disc space narrowing at L4-5 and mid and lower lumbar facet arthrosis. Soft tissues: Overlying bowel gas pattern is normal. No suspicious soft tissue calcifications. IMPRESSION: 1. Lumbar spine without acute osseous abnormalities. 2. Multilevel lumbar spondylosis most pronounced at L4-5. 3. Mild straightening of normal lumbar lordosis likely related to positioning and/or concurrent muscle spasms. Dictated by: Anil Kwon M.D. on 11/13/2019 at 13:04 Approved by: Anil Kwon M.D. on 11/13/2019 at 13:07
== END ==
PROVIDERS: PCP Family Medicine; Referring Provider Family Medicine; Visit Provider Family Medicine
DX: M54.9 Dorsalgia, unspecified (principal); M47.816 Spondylosis without myelopathy or radiculopathy, lumbar region; M25.511 Pain in right shoulder; G89.29 Other chronic pain; Z96.82 Presence of neurostimulator
CPT/HCPCS: 72100

== ENCOUNTER → 2019-12-12 10:09 | Outpatient (CLI) | payer OTHER, MEDICAID, SELFPAY ==
--- NOTE | 2019-12-12 10:10 | DI.US.S_ITS ---
PROCEDURE: US EXTREMITY NONVASC UPPER LT INDICATIONS: POSSIBLE FOREIGN BODY LEFT FIRST FINGER TECHNIQUE: Real-time scanning was performed of the left index finger, with image documentation. COMPARISON: None. FINDINGS: No abnormal fluid collections found. No definite foreign body is seen. IMPRESSION: The ultrasound evaluation does not contact a foreign body. Please note that ultrasound provides a limited quality of assessment for foreign body and this study does not entirely exclude the possibility of a thin reflective foreign body being present within the soft tissues. For example, even during ultrasound-guided biopsy or drainage procedures the positioning and angulation of the transducer frequently does not allow consistent visualization of the underlying advancing needle. Dictated by: Leighton Hilton M.D. on 12/12/2019 at 10:52 Approved by: Leighton Hilton M.D. on 12/12/2019 at 10:56
== END ==
PROVIDERS: PCP Family Medicine; Referring Provider Nurse Practitioner Family; Visit Provider Nurse Practitioner Family
DX: M79.645 Pain in left finger(s) (principal); M79.5 Residual foreign body in soft tissue
CPT/HCPCS: 76882

== ENCOUNTER 2020-04-17 09:59 | Emergency (ER) | payer OTHER, MEDICAID, SELFPAY ==
[2020-04-17 10:06] VITALS: BP 166/102; PULSE 100; RESP 18; TEMP 36.9; O2SAT 97; BMI 34.9
--- NOTE | 2020-04-17 10:10 | ED_ITS ---
HPI - Headache General Chief Complaint: Headache Stated Complaint: Migraine for 3 days Time Seen by Provider: 04/17/20 10:10 Mode of arrival: Ambulatory History of Present Illness HPI Narrative: 44-year-old woman with a history of migraine, reflux, chronic back and neck pain presents with headache this been present for at least 3 days. She describes it as a sharp stabbing pain from the back of her head through the back of her eye. She notes some mild left facial tingling when the pain is particularly severe but no other acute neurologic symptoms. She states this is similar to prior headaches but it has been quite awhile since she has had a migraine. She describes no fevers or cough. She notes that she has been vomiting significantly over the last number of days. She has tried generic Excedrin with no pain relief. She describes no chest pain, palpitations, dyspnea, fevers. She does note some right upper quadrant pain that has been bothering her concurrent with her headache but no other abdominal pain. Some mild constipation no difficulties with urination or urinary frequency. No skin rashes or other changes. Related Data Home Medications Medication Instructions Recorded Confirmed omeprazole 20 mg capsule,delayed 40 mg PO DAILY 02/19/19 12/11/19 release sucralfate 1 gram tablet 1 gram PO QACHS PRN tab 12/11/19 Previous Rx's Medication Instructions Recorded diclofenac sodium 1 % topical gel 2 gram TOP QID PRN #100 gram 07/12/19 fluoxetine 40 mg capsule 40 mg PO DAILY #90 cap 07/12/19 diazepam 5 mg tablet 5 mg PO BID PRN #20 tab 11/08/19 cephalexin 500 mg tablet 500 mg PO BID #10 tab 12/11/19 gabapentin 100 mg capsule See Rx Instructions .ROUTE 01/03/20 .COMPLEX #180 cap cyclobenzaprine 10 mg tablet See Rx Instructions .ROUTE 02/04/20 .COMPLEX #30 tablet oxycodone-acetaminophen 5 mg-325 1 tab PO TID PRN #90 tab 04/04/20 mg tablet Allergies Allergy/AdvReac Type Severity Reaction Status Date / Time ibuprofen AdvReac Mild Ulcers Verified 04/17/20 10:06 Review of Systems Review of Systems Narrative: Remainder of review of systems including constitutional, ENT, car diovascular, respiratory, GI, , musculoskeletal, skin, neurologic and psychiatric systems reviewed and are unremarkable except as noted in HPI. Patient History Medical History Anemia (Chronic) Carpal tunnel syndrome (Chronic) Cervical spine disease (Chronic) Chronic back pain (Chronic) Chronic headaches (Chronic) Conjunctivitis (Acute) Depression (Chronic) Fibromyalgia (Chronic) Foreign body (FB) in soft tissue (Acute) History of chicken pox (Resolved ~1980) History of painful menstruation (Resolved) Low back pain (Acute) Migraines (Chronic) Ovarian cyst (Resolved) Sinusitis (Acute) Ulcer (Chronic) Viral syndrome (Acute) Surgical History History of (Resolved ~1998) History of carpal tunnel surgery (Resolved ~2007) History of cervical discectomy (Resolved ~2005) History of lumbar discectomy (Resolved ~2002) History of partial hysterectomy (Resolved ~2013) Hx of hysterectomy, total (Resolved) Family History Father Cancer Mother Diabetes mellitus Brother No problems noted. Brother No problems noted. Sister No problems noted. Sister No problems noted. Grandfather No problems noted. Grandmother Breast cancer Grandfather No problems noted. Grandmother No problems noted. Son No problems noted. Social History household members: family Smoking Status: Former smoker Tobacco: How many years used: 30 alcohol intake: current Smoking Status: Former smoker alcohol intake frequency: 0-2 drinks per day Substance Use Type: does not use Exam Narrative Exam Narrative: General: In significant distress due to headache touching the left side of her face and eye. Able to give a complete and coherent history. Well-nourished well-developed HEENT: Moist mucous membranes, normal sclera with reactive pupils, Neck: No JVD, supple Respiratory: Lungs are clear to auscultation, no wheezing no rales no rhonchi. Full and symmetrical air movement Cardiac: Regular rate and rhythm no murmurs no bruits Abdomen: Soft nontender good bowel tones, no flank pain Skin: Warm and dry, no rashes Neurologic: Grossly neurologically intact with no obvious asymmetries or abnormalities Extremities: No trauma, well perfused Psych: Cooperative, appropriate insight and affect Initial Vital Signs Initial Vital Signs: Vital Signs Temperature 98.5 F 04/17/20 10:06 Pulse Rate 100 H 04/17/20 10:06 Respiratory Rate 18 04/17/20 10:06 Blood Pressure 166/102 H 04/17/20 10:06 Pulse Oximetry 97 04/17/20 10:06 Course Orders Ordered: ED Orders 04/17/20 10:25 Complete Blood Count AUTO DIFF Stat Comprehensive Metabolic Panel Stat Lipase Stat Discontinued Medications Dexamethasone (Decadron) 10 mg IV NOW ONE Stop: 04/17/20 10:18 Last Admin: 04/17/20 10:40 Dose: 10 mg Documented by: SANTOS Diphenhydramine HCl (Benadryl) 25 mg IV NOW ONE Stop: 04/17/20 10:18 Last Admin: 04/17/20 10:41 Dose: 25 mg Documented by: SANTOS Sodium Chloride (Normal Saline 0.9%) 1,000 mls @ 1,000 mls/hr IV BOLUS ONE Stop: 04/17/20 11:16 Last Infusion: 04/17/20 11:37 Dose: 0 mls/hr Documented by: Admin: 04/17/20 10:37 Dose: 1,000 mls/hr Documented by: SANTOS Ketorolac Tromethamine (Toradol) 15 mg IV NOW ONE Stop: 04/17/20 10:18 Last Admin: 04/17/20 10:42 Dose: 15 mg Documented by: SANTOS Prochlorperazine (Compazine) 10 mg IV NOW ONE Stop: 04/17/20 10:18 Last Admin: 04/17/20 10:38 Dose: 10 mg Documented by: SANTOS Vital Signs Vital signs: Vital Signs - 8 hr 04/17/20 10:06 04/17/20 10:38 04/17/20 11:47 Temperature 98.5 F Pulse Rate 100 H 98 H 73 Respiratory Rate 18 16 Blood Pressure 166/102 H 166/102 H 121/63 Pulse Oximetry 97 97 MDM - Headache Lab Data Attestation: I reviewed the patient's lab results. Result diagrams: 04/17/20 10:25 04/17/20 10:25 Labs: Lab Results 04/17/20 04/17/20 Range/Units 10:25 10:25 WBC 6.5 (4.5-11.0) X10^3/uL RBC 4.25 (4.0-5.2) X10^6/uL Hgb 13.8 (12.0-16.0) g/dL Hct 40.1 (36-46) % MCV 94.4 (80-100) fL MCH 32.5 (26-34) PG MCHC 34.4 (30-36) % RDW 14.2 (11.6-14.8) % Plt Count 246 (150-400) X10^3/uL Neut % (Auto) 65.9 (50-75) % Lymph % (Auto) 26.7 (25-40) % [place] % (Auto) 4.3 (3-14) % Eos % (Auto) 2.2 (2-4) % Baso % (Auto) 0.9 (0-2) % Neut # (Auto) 4300 (5997-3243) /uL Lymph # (Auto) 1700 (6830-8138) /uL [place] # (Auto) 300 (0-900) /uL Eos # (Auto) 100 (0-450) /uL Baso # (Auto) 100 (0-100) /uL Sodium 140 (137-145) mmol/L Potassium 4.0 (3.4-5.1) mmol/L Chloride 106 (98-107) mmol/L Carbon Dioxide 25 (22-32) mmol/L BUN 13 (7-17) mg/dL Creatinine 0.77 (0.52-1.04) mg/dL Estimated GFR > 60.0 (>60) mL/min BUN/Creatinine Ratio 16.9 (6-22) Glucose 125 H (70-100) mg/dL Calcium 9.6 (8.4-10.2) mg/dL Total Bilirubin 0.6 (0.2-1.3) mg/dL AST 88 H (14-36) IU/L ALT 85 H (<35) IU/L Alkaline Phosphatase 139 H (38-126) U/L Total Protein 8.2 (6.3-8.2) g/dL Albumin 4.3 (3.5-5.0) g/dL Globulin 3.9 (1.7-4.1) g/dL Albumin/Globulin Ratio 1.1 (1.0-2.8) Lipase 147 (23-300) U/L MDM Narrative Medical decision making narrative: After fluids Compazine Benadryl and Toradol patient is feeling significantly improved. Labs are notable for slightly increased alkaline phosphatase AST an ALT. No evidence of acute cholecystitis. Will recommend follow-up with primary care physician. Presentation is most consistent with acute migraine and has responded nicely. There is no evidence of significant infection, meningitis, or other acute neurologic findings. She is safe for home discharge Discharge Plan Departure Patient Disposition: Home Clinical Impression: Migraine Qualifiers: Migraine type: unspecified Status migrainosus presence: without status migrainosus Intractability: not intractable Qualified Code(s): G43.909 - Migraine, unspecified, not intractable, without status migrainosus Instructions: DI for Migraine Activity Restrictions/Additional Instructions: Thank you for coming in today Your given fluid, Compazine for nausea, Benadryl to help Compazine work more effectively, and Toradol. This seem to be an effective treatment for your acute headache. With that combination you are also given a dose of steroid to help prevent this headache recurring. Your lab work did show very minimally elevated liver enzymes. I would recommend that you follow-up with your primary care physician particularly in light of the fact that you are having some mild pain and tenderness in the right upper portion of your abdomen. I hope you feel better Prescriptions: No Action diazepam 5 mg tablet 5 mg PO BID PRN (Reason: muscle spasm) Qty: 20 RF: 0 gabapentin 100 mg capsule See Rx Instructions .ROUTE .COMPLEX Qty: 180 RF: 1 cyclobenzaprine 10 mg tablet See Rx Instructions .ROUTE .COMPLEX Qty: 30 RF: 1 oxycodone-acetaminophen 5-325 mg tablet 1 tab PO TID PRN (Reason: pain) Qty: 90 RF: 0 omeprazole 20 mg capsule,delayed release(DR/EC) 40 mg PO DAILY RF: 0 fluoxetine [Prozac] 40 mg capsule 40 mg PO DAILY Qty: 90 RF: 3 diclofenac sodium [Voltaren] 1 % gel 2 gram TOP QID PRN (Reason: pain) Qty: 100 RF: 3 sucralfate [Carafate] 1 gram tablet 1 gram PO QACHS PRNRF: 0 cephalexin 500 mg tablet 500 mg PO BID Qty: 10 RF: 0 Referrals: Juarez Hull, [Primary Care Provider] -
[2020-04-17 10:35] LABS: Add Manual Diff / Slide Review NO; Basophils Absolute Auto 100 /uL (0-100); Basophils Percent Auto 0.9 % (0-2); Eosinophils Absolute Auto 100 /uL (0-450); Eosinophils Percent Auto 2.2 % (2-4); Hematocrit 40.1 % (36-46); Hemoglobin 13.8 g/dL (12.0-16.0); Lymphocytes Absolute Auto 1700 /uL (1100-4500); Lymphocytes Percent Auto 26.7 % (25-40); Mean Corpuscular HGB Conc 34.4 % (30-36); Mean Corpuscular Hemoglobin 32.5 PG (26-34); Mean Corpuscular Volume 94.4 fL (80-100); Monocytes Absolute Auto 300 /uL (0-900); Monocytes Percent Auto 4.3 % (3-14); Neutrophils Absolute Auto 4300 /uL (1500-7000); Neutrophils Percent Auto 65.9 % (50-75); Platelet Count 246 X10^3/uL (150-400); Red Blood Cell Count 4.25 X10^6/uL (4.0-5.2); Red Cell Distribution Width 14.2 % (11.6-14.8); White Blood Cell Count 6.5 X10^3/uL (4.5-11.0)
[2020-04-17] MEDS: SODIUM CHLORIDE 0.9% 1,000 ML 1000 ML IV (10:37)
[2020-04-17 10:38] VITALS: BP 166/102; PULSE 98
[2020-04-17] MEDS: PROCHLORPERAZINE 10 MG/2 ML VIAL IV (10:38)
[2020-04-17] MEDS: DEXAMETHASONE 10 MG/ML VIAL IV (10:40)
[2020-04-17] MEDS: diphenhydrAMINE 50 MG/ML VIAL 25 MG IV (10:41)
[2020-04-17] MEDS: KETOROLAC 60 MG/2 ML VIAL 15 MG IV (10:42)
[2020-04-17 10:44] LABS: Alanine Aminotransferase 85 IU/L (<35); Albumin 4.3 g/dL (3.5-5.0); Albumin Globulin Ratio 1.1 (1.0-2.8); Alkaline Phosphatase 139 U/L (38-126); Aspartate Aminotransferase 88 IU/L (14-36); BUN Creatinine Ratio 16.9 (6-22); Bilirubin Total 0.6 mg/dL (0.2-1.3); Blood Urea Nitrogen 13 mg/dL (7-17); Calcium 9.6 mg/dL (8.4-10.2); Carbon Dioxide 25 mmol/L (22-32); Chloride 106 mmol/L (98-107); Estimated Glomerular Filt Rate > 60.0 mL/min (>60); Globulin 3.9 g/dL (1.7-4.1); Glucose 125 mg/dL (70-100); HEMOLYSIS < 15 (0-50); Lipase 147 U/L (23-300); Sodium 140 mmol/L (137-145); Total Protein 8.2 g/dL (6.3-8.2)
[2020-04-17 11:47] VITALS: BP 121/63; PULSE 73; RESP 16; O2SAT 97
== END 2020-04-17 12:20 | disposition home or self-care (01) ==
PROVIDERS: Emergency Provider Emergency Medicine; PCP Family Medicine
DX: G43.909 Migraine, unspecified, not intractable, without status migrainosus (principal)
CPT/HCPCS: 36415; 80053; 83690; 85025; 96360; 96374; 96375; 99284; J0780; J1100; J1200; J1885

== ENCOUNTER 2020-04-20 20:43 | Emergency (ER) | payer OTHER, MEDICAID, SELFPAY ==
[2020-04-20 20:45] VITALS: BP 187/109; PULSE 94; RESP 20; TEMP 36.4; O2SAT 97; BMI 34.9
--- NOTE | 2020-04-20 21:47 | ED.HA ---
HPI - Headache General Chief Complaint: Headache Stated Complaint: Migraine Time Seen by Provider: 04/20/20 21:42 Source: patient Mode of arrival: Ambulatory Limitations: no limitations History of Present Illness HPI Narrative: 44-year-old female here for evaluation of a migraine headache. Was seen here in the emergency department couple days ago for the same. Received IV medications. She reports that after that and the next day her symptoms had completely resolved. States that the same headache came back earlier today. It does feel like 1 of her prior migraines. No fevers. Not sudden onset. Has a sharp pain on the left side of her head. Also tingling on the left side of her face. No other neurologic symptoms. Related Data Home Medications Medication Instructions Recorded Confirmed omeprazole 20 mg capsule,delayed 40 mg PO DAILY 02/19/19 12/11/19 release sucralfate 1 gram tablet 1 gram PO QACHS PRN tab 12/11/19 Previous Rx's Medication Instructions Recorded diclofenac sodium 1 % topical gel 2 gram TOP QID PRN #100 gram 07/12/19 fluoxetine 40 mg capsule 40 mg PO DAILY #90 cap 07/12/19 diazepam 5 mg tablet 5 mg PO BID PRN #20 tab 11/08/19 cephalexin 500 mg tablet 500 mg PO BID #10 tab 12/11/19 gabapentin 100 mg capsule See Rx Instructions .ROUTE 01/03/20 .COMPLEX #180 cap cyclobenzaprine 10 mg tablet See Rx Instructions .ROUTE 02/04/20 .COMPLEX #30 tablet oxycodone-acetaminophen 5 mg-325 1 tab PO TID PRN #90 tab 04/04/20 mg tablet Allergies Allergy/AdvReac Type Severity Reaction Status Date / Time ibuprofen AdvReac Mild Ulcers Verified 04/17/20 10:06 Review of Systems Constitutional Constitutional: Denies fever(s) and Reports headache(s) Eyes Eyes: Denies change in vision ENT Ears, Nose, Mouth, and Throat: Reports headache(s) Cardiovascular Cardiovascular: Denies chest pain and Denies dyspnea Respiratory Respiratory: Denies dyspnea Gastrointestinal Gastrointestinal: Denies abdominal pain Musculoskeletal Musculoskeletal: Reports tingling (Left-sided face) Integumentary/Breasts Skin/Breast: Denies lesions and Denies rash Neurologic Neurologic: Reports headache(s) and Reports tingling (Left-sided face) Hematologic/Lymphatic Hematologic/Lymphatic: Denies easy bleeding and Denies easy bruising Patient History Medical History Anemia (Chronic) Carpal tunnel syndrome (Chronic) Cervical spine disease (Chronic) Chronic back pain (Chronic) Chronic headaches (Chronic) Conjunctivitis (Acute) Depression (Chronic) Fibromyalgia (Chronic) Foreign body (FB) in soft tissue (Acute) History of chicken pox (Resolved ~1980) History of painful menstruation (Resolved) Low back pain (Acute) Migraines (Chronic) Ovarian cyst (Resolved) Sinusitis (Acute) Ulcer (Chronic) Viral syndrome (Acute) Surgical History History of (Resolved ~1998) History of carpal tunnel surgery (Resolved ~2007) History of cervical discectomy (Resolved ~2005) History of lumbar discectomy (Resolved ~2002) History of partial hysterectomy (Resolved ~2013) Hx of hysterectomy, total (Resolved) Family History Father Cancer Mother Diabetes mellitus Brother No problems noted. Brother No problems noted. Sister No problems noted. Sister No problems noted. Grandfather No problems noted. Grandmother Breast cancer Grandfather No problems noted. Grandmother No problems noted. Son No problems noted. Social History household members: family Smoking Status: Former smoker Tobacco: How many years used: 30 alcohol intake: current Smoking Status: Former smoker alcohol intake frequency: 0-2 drinks per day Substance Use Type: does not use Exam Initial Vital Signs Initial Vital Signs: Vital Signs Temperature 97.6 F 04/20/20 20:45 Pulse Rate 94 H 04/20/20 20:45 Respiratory Rate 20 04/20/20 20:45 Blood Pressure 187/109 H 04/20/20 20:45 Pulse Oximetry 97 04/20/20 20:45 Const General: cooperative, healthy appearing, comfortable and well developed Limitations: mental status not altered HENMT Head: normal to inspection and normocephalic Resp Effort & Inspection: normal respiratory effort Auscultation: clear to auscultation bilaterally Cardio Rate: regular rate Rhythm: regular rhythm Skin Lesions: no lesions Rashes: no rashes Neuro General: patient alert, patient awake and patient oriented x3 Cranial Nerves: CN's II-XI intact bilaterally Cognition: normal cognition Speech: speech normal Gait: normal gait Motor: muscle tone normal throughout Sensory Exam: no sensory deficits noted Extrem General: normal to inspection and capillary refill normal Psych Appearance: grossly normal and well kempt Scores GCS Kiersten coma scale eye opening: Spontaneous [place] coma scale verbal response: Orientated [place] coma scale motor response: Obey commands [place] coma scale total score: 15 Course Orders Ordered: Discontinued Medications Acetaminophen (Tylenol) 650 mg PO NOW ONE Stop: 04/20/20 21:48 Last Admin: 04/20/20 22:06 Dose: 650 mg Documented by: FAIZA Diphenhydramine HCl (Benadryl) 25 mg IV NOW ONE Stop: 04/20/20 21:48 Last Admin: 04/20/20 22:06 Dose: 25 mg Documented by: FAIZA Sodium Chloride (Normal Saline 0.9%) 1,000 mls @ 1,000 mls/hr IV BOLUS ONE Stop: 04/20/20 22:46 Last Infusion: 04/20/20 22:50 Dose: 0 mls/hr Documented by: Admin: 04/20/20 22:07 Dose: 1,000 mls/hr Documented by: FAIZA Ketorolac Tromethamine (Toradol) 30 mg IV NOW ONE Stop: 04/20/20 21:48 Last Admin: 04/20/20 22:06 Dose: 30 mg Documented by: FAIZA Methylprednisolone (Solu-Medrol 125 Mg Vial) 125 mg IV NOW ONE Stop: 04/20/20 21:48 Last Admin: 04/20/20 22:07 Dose: 125 mg Documented by: FAIZA Metoclopramide HCl (Reglan) 10 mg IV NOW ONE Stop: 04/20/20 21:48 Last Admin: 04/20/20 22:07 Dose: 10 mg Documented by: FAIZA Vital Signs Vital signs: Vital Signs - 8 hr 04/20/20 20:45 04/20/20 22:56 Temperature 97.6 F Pulse Rate 94 H 85 Respiratory Rate 20 14 Blood Pressure 187/109 H 141/72 H Pulse Oximetry 97 98 MDM - Headache MDM Narrative Medical decision making narrative: Reports improvement of her symptoms after medications. Low suspicion for meningitis. Low suspicion for intracranial hemorrhage. Feel we can hold on radiologic studies. Patient has medications at home that she can take for her headache. She is asking to go home. She was given return precautions and follow-up instructions. She expressed understanding and agreement. Discharge Plan Departure Patient Disposition: Home Clinical Impression: Migraine Discharge Date/Time: 04/20/20 22:56 Instructions: DI for Migraine Activity Restrictions/Additional Instructions: Continue all of your medications as directed. Contact your primary provider for follow-up. Return to the emergency department for any new or worsening symptoms Prescriptions: No Action diazepam 5 mg tablet 5 mg PO BID PRN (Reason: muscle spasm) Qty: 20 RF: 0 gabapentin 100 mg capsule See Rx Instructions .ROUTE .COMPLEX Qty: 180 RF: 1 cyclobenzaprine 10 mg tablet See Rx Instructions .ROUTE .COMPLEX Qty: 30 RF: 1 oxycodone-acetaminophen 5-325 mg tablet 1 tab PO TID PRN (Reason: pain) Qty: 90 RF: 0 omeprazole 20 mg capsule,delayed release(DR/EC) 40 mg PO DAILY RF: 0 fluoxetine [Prozac] 40 mg capsule 40 mg PO DAILY Qty: 90 RF: 3 diclofenac sodium [Voltaren] 1 % gel 2 gram TOP QID PRN (Reason: pain) Qty: 100 RF: 3 sucralfate [Carafate] 1 gram tablet 1 gram PO QACHS PRNRF: 0 cephalexin 500 mg tablet 500 mg PO BID Qty: 10 RF: 0 Referrals: Juarez Hull DO [Primary Care Provider] -
[2020-04-20] MEDS: diphenhydrAMINE 50 MG/ML VIAL 25 MG IV (22:06)
[2020-04-20] MEDS: KETOROLAC 60 MG/2 ML VIAL 30 MG IV (22:06)
[2020-04-20] MEDS: ACETAMINOPHEN 325 MG TABLET 650 MG PO (22:06)
[2020-04-20] MEDS: METOCLOPRAMIDE 10 MG/2 ML INJ IV (22:07)
[2020-04-20] MEDS: SODIUM CHLORIDE 0.9% 1,000 ML 1000 ML IV (22:07)
[2020-04-20] MEDS: methylPREDNISolone 125 MG/2 ML VIAL IV (22:07)
[2020-04-20 22:56] VITALS: BP 141/72; PULSE 85; RESP 14; O2SAT 98
== END 2020-04-20 22:56 | disposition home or self-care (01) ==
PROVIDERS: Emergency Provider Emergency Medicine; PCP Family Medicine
DX: G43.909 Migraine, unspecified, not intractable, without status migrainosus (principal)
CPT/HCPCS: 36415; 96361; 96374; 96375; 99284; J1200; J1885; J2765; J2930

== ENCOUNTER 2020-04-24 21:15 | Emergency (ER) | payer OTHER, MEDICAID, SELFPAY ==
[2020-04-24] VITALS (7 sets, daily range): BP systolic 146–189; BP diastolic 87–102; PULSE 75–102; RESP 16–20; TEMP 36.4; O2SAT 96–100; BMI 35.7
--- NOTE | 2020-04-24 21:31 | ED_ITS ---
HPI - Headache General Chief Complaint: Headache Stated Complaint: MIGRAINE BODY HURTS Time Seen by Provider: 04/24/20 21:16 Source: patient Mode of arrival: Ambulatory Limitations: no limitations History of Present Illness HPI Narrative: 44-year-old female former smoker with extensive history of migraines since age 2 presents for the 3rd time this week with a generalized headache which she refers to as a migraine. She states that it is very similar in terms of the way that feels and its location but it typically would not last this long. She states it is worse with bright lights and loud noise. She has nausea but denies vomiting. She denies any fever nor recent injury. She has no blurred vision, trouble with speech. She has no neck pain. She does complain of some sore throat, mild difficulty in swallowing and states that her skin hurts and she is achy. She denies chest pain or shortness of breath. She has had no cough and denies any exposure to persons with known COVID. Related Data Home Medications Medication Instructions Recorded Confirmed omeprazole 20 mg capsule,delayed 40 mg PO DAILY 02/19/19 12/11/19 release sucralfate 1 gram tablet 1 gram PO QACHS PRN tab 12/11/19 Previous Rx's Medication Instructions Recorded diclofenac sodium 1 % topical gel 2 gram TOP QID PRN #100 gram 07/12/19 fluoxetine 40 mg capsule 40 mg PO DAILY #90 cap 07/12/19 diazepam 5 mg tablet 5 mg PO BID PRN #20 tab 11/08/19 cephalexin 500 mg tablet 500 mg PO BID #10 tab 12/11/19 gabapentin 100 mg capsule See Rx Instructions .ROUTE 01/03/20 .COMPLEX #180 cap cyclobenzaprine 10 mg tablet See Rx Instructions .ROUTE 02/04/20 .COMPLEX #30 tablet oxycodone-acetaminophen 5 mg-325 1 tab PO TID PRN #90 tab 04/04/20 mg tablet Allergies Allergy/AdvReac Type Severity Reaction Status Date / Time ibuprofen AdvReac Mild Ulcers Verified 04/24/20 21:22 Review of Systems Constitutional Constitutional: Reports body ache(s), Denies chills, Denies fatigue, Denies fever(s), Denies frequent falls, Reports headache(s), Denies lethargy and Denies weakness Eyes Eyes: Denies change in vision, Denies eye discharge, Denies irritation and Denies loss of vision ENT Ears, Nose, Mouth, and Throat: Denies change in voice, Denies dizziness, Reports headache(s), Denies neck pain, Reports sore throat and Denies throat swelling Cardiovascular Cardiovascular: Denies chest pain, Denies irregular heart rhythm, Denies lightheadedness, Denies palpitations, Denies dyspnea, Denies dyspnea on exertion and Denies orthopnea Respiratory Respiratory: Denies cough, Denies dyspnea, Denies dyspnea on exertion and Denies wheezing Gastrointestinal Gastrointestinal: Denies abdominal pain, Denies change in bowel habits, Denies diarrhea, Denies nausea and Denies vomiting Musculoskeletal Musculoskeletal: Denies neck pain and Denies numbness Integumentary/Breasts Skin/Breast: Denies pruritus, Denies erythema, Denies rash and Denies wounds Neurologic Neurologic: Denies behavioral changes, Denies confusion, Denies dizziness, Denies frequent falls, Reports headache(s), Denies loss of vision, Denies numbness and Denies weakness Psychiatric Psychiatric: Denies anxiety, Denies behavioral changes, Denies confusion, Denies depression, Denies homicidal ideation and Denies suicidal ideation Endocrine Endocrine: Denies fatigue, Denies flushing and Denies palpitations Hematologic/Lymphatic Hematologic/Lymphatic: Denies easy bruising Allergic/Immunologic Allergic/Immunologic: Denies urticaria, Denies throat swelling and Denies wheezing Patient History Medical History Anemia (Chronic) Carpal tunnel syndrome (Chronic) Cervical spine disease (Chronic) Chronic back pain (Chronic) Chronic headaches (Chronic) Conjunctivitis (Acute) Depression (Chronic) Fibromyalgia (Chronic) Foreign body (FB) in soft tissue (Acute) History of chicken pox (Resolved ~1980) History of painful menstruation (Resolved) Low back pain (Acute) Migraines (Chronic) Ovarian cyst (Resolved) Sinusitis (Acute) Ulcer (Chronic) Viral syndrome (Acute) Surgical History History of (Resolved ~1998) History of carpal tunnel surgery (Resolved ~2007) History of cervical discectomy (Resolved ~2005) History of lumbar discectomy (Resolved ~2002) History of partial hysterectomy (Resolved ~2013) Hx of hysterectomy, total (Resolved) Family History Father Cancer Mother Diabetes mellitus Brother No problems noted. Brother No problems noted. Sister No problems noted. Sister No problems noted. Grandfather No problems noted. Grandmother Breast cancer Grandfather No problems noted. Grandmother No problems noted. Son No problems noted. Social History household members: family Smoking Status: Former smoker Tobacco: How many years used: 30 alcohol intake: current Smoking Status: Former smoker alcohol intake frequency: 0-2 drinks per day Substance Use Type: does not use Exam Narrative Exam Narrative: GENERAL: [44] year old patient appears stated age. Well- nourished, well-developed patient, in mild distress. Sitting in a dark room, shielding her eyes HEAD: Atraumatic. Normocephalic. EYES: Pupils equal round and reactive. Extraocular motions intact. No scleral icterus. No injection or drainage. ENT: Nose without bleeding, purulent drainage. Throat without erythema, tonsillar hypertrophy or exudate. Airway patent. NECK: Trachea midline. Non tender. No meningeal signs, painless full range of motion, negative Kernig's, negative Brudzinski's CARDIOVASCULAR: Regular rate and rhythm without murmurs, gallops, or rubs. RESPIRATORY: Clear to auscultation. Breath sounds equal bilaterally. No wheezes, rales, or rhonchi. GASTROINTESTINAL: Abdomen soft, non-tender, nondistended. EXTREMITIES: No edema or joint tenderness. BACK: Nontender without deformity or crepitance. No flank tenderness. NEURO: AOx3. SKIN: No rash or erythema of visible areas NIH Stroke Scale 1a. LOC: Patient is alert and keenly responsive (0) 1b. LOC Questions: Patient answers both LOC questions accurately (0) 1c. LOC Commands: Patient performs both tasks correctly (0) 2. Best Gaze: Normal (0) 3. Visual: No visual loss (0) 4. Facial palsy: Normal symmetrical movements (0) 5. Motor arm: No drift (0) 6. Motor leg: No drift (0) 7. Limb ataxia: Absent (0) 8. Sensory: Normal (0) 9. Best language: No aphasia; normal (0) 10. Dysarthria: Normal (0) 11. Extinction and inattention: No abnormality (0) NIHSS: 0 Initial Vital Signs Initial Vital Signs: Vital Signs Temperature 97.5 F L 04/24/20 21:18 Pulse Rate 102 H 04/24/20 21:18 Respiratory Rate 16 04/24/20 21:18 Blood Pressure 189/100 H 04/24/20 21:18 Pulse Oximetry 100 04/24/20 21:18 Course Orders Ordered: ED Orders 04/24/20 21:32 CT head/brain wo con Stat 04/24/20 23:55 COVID19 -ED/INPAT/OR/L&D Stat Influenza A & B (PCR) Stat Sodium Chloride (Normal Saline 0.9%) 1,000 mls @ 1,000 mls/hr IV BOLUS ONE Stop: 04/25/20 00:46 Last Admin: 04/24/20 23:57 Dose: 1,000 mls/hr Documented by: ALBA Discontinued Medications Diphenhydramine HCl (Benadryl) 25 mg IV NOW ONE Stop: 04/24/20 21:33 Last Admin: 04/24/20 21:51 Dose: 25 mg Documented by: ALBA Sodium Chloride (Normal Saline 0.9%) 1,000 mls @ 1,000 mls/hr IV BOLUS ONE Stop: 04/24/20 22:31 Last Infusion: 04/24/20 22:42 Dose: 0 mls/hr Documented by: Admin: 04/24/20 21:51 Dose: 1,000 mls/hr Documented by: ALBA Ketorolac Tromethamine (Toradol) 15 mg IV NOW ONE Stop: 04/24/20 21:33 Last Admin: 04/24/20 21:51 Dose: 15 mg Documented by: ALBA Metoclopramide HCl (Reglan) 10 mg IV NOW ONE Stop: 04/24/20 21:33 Last Admin: 04/24/20 21:52 Dose: 10 mg Documented by: ALBA Reevaluation(s) Reevaluation #1: The patient feeling much better after the above-stated therapies. She is able to sleep and we allowed her to rest for well over an hour. Upon waking her headache is essentially gone. Vital Signs Vital signs: Vital Signs - 8 hr 04/24/20 21:18 04/24/20 21:59 04/24/20 22:00 Temperature 97.5 F L Pulse Rate 102 H 75 84 Respiratory Rate 16 20 Blood Pressure 189/100 H 167/102 H Pulse Oximetry 100 96 99 04/24/20 22:30 04/24/20 23:00 04/24/20 23:30 Temperature Pulse Rate 89 88 78 Respiratory Rate Blood Pressure Pulse Oximetry 97 97 97 04/24/20 23:54 Temperature Pulse Rate 80 Respiratory Rate 18 Blood Pressure 146/87 H Pulse Oximetry 99 MDM - Headache Lab Data Labs: Lab Results 04/24/20 Range/Units 23:55 COVID-19 PCR Negative (Negative) Imaging Data CT scan - head: Radiologist's Impression: 12 James Johnson DO Find Patient Imaging - Rosie White 44 F 1975 ACTIVITY DATE EXAM STATUS AUTHOR 04/24/20 21:[address] [address] [address] Scan Report Signed Patient: Rosie White [facility]#: [id number] : 1975Acct:[id number] Age/Sex: 44 / FDate of Service: 04/24/20 Loc: ED Accession Number: [id number] Procedure: CT head/brain wo con Ordering Provider: James Johnson D.O. PROCEDURE: CT HEAD/BRAIN WO CON INDICATIONS: severe headache, third visit this week TECHNIQUE: Noncontrast 4.5 mm thick angled axial sections acquired from the foramen magnum to the vertex, with coronal and sagittal reformats. For radiation dose reduction, the following was used: automated exposure control, adjustment of mA and/or kV according to patient size. COMPARISON: None. FINDINGS: Image quality: Excellent. CSF spaces: Basal cisterns are patent. No extra-axial fluid collections. Ventricles are normal in size and shape. Brain: No midline shift. No intracranial masses or hemorrhage. Neal-white matter interface is normal. Skull and face: Calvarium and visualized facial bones are intact, without suspicious lesions. Sinuses: Visualized sinuses and mastoids are clear. IMPRESSION: No acute intracranial process. Dictated by: Chris Ross M.D. on 04/24/2020 at 21:51 Approved by: Chris Ross M.D. on 04/24/2020 at 21:53 MDM Narrative Medical decision making narrative: Multiple etiologies for patient's symptoms considered including: [Migraine headache versus coronavirus versus flu versus meningitis versus other Patient's symptoms improved over duration of stay with above-stated therapies. Findings and discharge diagnosis discussed with patient/family followed by verb alization of understanding Return precautions discussed with patient/family whom verbalize understanding. Discharge Plan Departure Patient Disposition: Home Prescriptions: No Action diazepam 5 mg tablet 5 mg PO BID PRN (Reason: muscle spasm) Qty: 20 RF: 0 gabapentin 100 mg capsule See Rx Instructions .ROUTE .COMPLEX Qty: 180 RF: 1 cyclobenzaprine 10 mg tablet See Rx Instructions .ROUTE .COMPLEX Qty: 30 RF: 1 oxycodone-acetaminophen 5-325 mg tablet 1 tab PO TID PRN (Reason: pain) Qty: 90 RF: 0 omeprazole 20 mg capsule,delayed release(DR/EC) 40 mg PO DAILY RF: 0 fluoxetine [Prozac] 40 mg capsule 40 mg PO DAILY Qty: 90 RF: 3 diclofenac sodium [Voltaren] 1 % gel 2 gram TOP QID PRN (Reason: pain) Qty: 100 RF: 3 sucralfate [Carafate] 1 gram tablet 1 gram PO QACHS PRNRF: 0 cephalexin 500 mg tablet 500 mg PO BID Qty: 10 RF: 0 Referrals: Juarez Hull DO [Primary Care Provider] -
[2020-04-24] MEDS: diphenhydrAMINE 50 MG/ML VIAL 25 MG IV (21:51)
[2020-04-24] MEDS: KETOROLAC 60 MG/2 ML VIAL 15 MG IV (21:51)
[2020-04-24] MEDS: SODIUM CHLORIDE 0.9% 1,000 ML 1000 ML IV ×2 (21:51→23:57)
[2020-04-24] MEDS: METOCLOPRAMIDE 10 MG/2 ML INJ IV (21:52)
--- NOTE | 2020-04-24 22:44 | PC.NURSE ---
Pt is currently asleep.
[2020-04-25] VITALS: PULSE 69; O2SAT 100
[2020-04-25 00:27] LABS: COVID19 -Nasal RAPID Negative (Negative)
[2020-04-25 00:30] VITALS: PULSE 70; O2SAT 98
[2020-04-25 00:44] LABS: Influenza A - CEPHEID Flu A NEGATIVE (NEGATIVE); Influenza B - CEPHEID Flu B NEGATIVE (NEGATIVE)
[2020-04-25 00:52] VITALS: BP 137/82; PULSE 74; RESP 16; TEMP 36.9; O2SAT 99
== END 2020-04-25 01:04 | disposition home or self-care (01) ==
PROVIDERS: Emergency Provider Emergency Medicine; PCP Family Medicine
DX: G43.909 Migraine, unspecified, not intractable, without status migrainosus (principal)
CPT/HCPCS: 36415; 70450; 87502; 87635; 96361; 96374; 96375; 99284; J1200; J1885; J2765

== ENCOUNTER → 2020-07-30 13:09 | Outpatient (CLI) | payer OTHER, MEDICAID, SELFPAY ==
--- NOTE | 2020-07-30 13:11 | DI.CT.S_ITS ---
PROCEDURE: CT CERVICAL SPINE WO CON INDICATIONS: cervical pain s/p fusion and stimulator placement TECHNIQUE: Noncontrast 3 mm thick sections acquired from the skull base to the T4 level. Sagittal and coronal reformats were then constructed. For radiation dose reduction, the following was used: automated exposure control, adjustment of mA and/or kV according to patient size. COMPARISON: [facility], CT, CT LUMBAR SPINE WO CON, 07/30/2020, 13:38. [facility], CT, CT HEAD/BRAIN WO CON, 04/24/2020, 21:35. FINDINGS: Image quality: Excellent. Bones: No fractures or dislocations. Visualized superior ribs are intact. A disc spacer is seen at the C5-C6 level, with bony fusion at this level. There is moderate to severe disc space narrowing seen at C6-C7, with posteriorly directed endplate osteophytes at this level. Milder degenerative changes are seen elsewhere. Soft tissues: Prevertebral soft tissues are normal in thickness. No paravertebral hematomas. No apical pneumothoraces. IMPRESSION: Disc spacer at C5-C6, with bony fusion at this level. Focal C6-C7 degenerative change. Dictated by: Kevin Mcclure M.D. on 07/30/2020 at 13:12 Approved by: Kevin Mcclure M.D. on 07/30/2020 at 13:13
--- NOTE | 2020-07-30 13:11 | DI.CT.S_ITS ---
PROCEDURE: CT LUMBAR SPINE WO CON INDICATIONS: bilateral LE pain s/p fusion and stimulator placement TECHNIQUE: Noncontrast 3 mm thick sections acquired from the T12 level to the sacrum. Sagittal and coronal reformats were constructed. For radiation dose reduction, the following was used: automated exposure control. COMPARISON: [facility], CT, CT CERVICAL SPINE WO CON, 07/30/2020, 13:38. [facility], CR, XR LUMBAR SPINE 2-3V, 11/13/2019, 11:58. FINDINGS: Image quality: Excellent. Bones: There is normal bony alignment. No acute vertebral body compression fractures. No suspicious lytic or blastic bony lesions. Central spinal caliber is of normal overall caliber. No pars defects. There is a left-sided thoracic spine stimulator, with the leads entering from posteriorly at the L1-L2 and L2-L3 levels. The leads are seen along the posterior aspect of the thecal sac and course superiorly up into the thoracic spine are off the field of view of this study. T12-L1: Normal. L1-L2: Normal. L2-L3: The disc height is well preserved. Mild disc bulge is seen. No significant neural foraminal or central canal narrowing can be seen. L3-L4: Minimal loss of disc height is seen. Moderate disc bulge is seen, with a central/left mild disc extrusion, with slight inferior migration of the disc material. Minimal bilateral neural foraminal narrowing can be seen. At least moderate central canal narrowing is seen at this level, as on series 6, image 52. L4-L5: Moderate to severe loss of disc height is seen. Vacuum disc phenomenon is seen at this level. Endplate irregularity and sclerosis can be seen. At least moderate disc bulge is seen, with a central disc protrusion. Mild to moderate facet hypertrophy is seen. There is at least moderate bilateral neural foraminal narrowing seen. At least moderate central canal narrowing is seen. L5-S1: Mild loss of disc height is seen. Mild to moderate disc bulge is seen, with a central disc extrusion. There is [id number] right-sided and mild left-sided neural foraminal narrowing seen. There is at least moderate left-sided and [id number] right-sided neural foraminal narrowing seen. Moderate central canal narrowing is seen, as on series 6, image 69. Soft tissues: No retroperitoneal masses or hematomas. Visualized aorta is normal in caliber. Incidental note is made of a retroaortic left renal vein. IMPRESSION: A thoracic spine stimulator can be seen, without complication. Premature degenerative changes are seen, with moderate to severe disc space narrowing at L4-L5. Disc extrusions are also seen at L3-L4 and L5-S1. Incidental note is made of: Retroaortic left renal vein Dictated by: Kevin Mcclure M.D. on 07/30/2020 at 13:13 Approved by: Kevin Mcclure M.D. on 07/30/2020 at 13:19
== END ==
PROVIDERS: PCP Family Medicine; Referring Provider Physical Medicine & Rehabilitation; Visit Provider Physical Medicine & Rehabilitation
DX: M47.22 Other spondylosis with radiculopathy, cervical region (principal); M51.16 Intervertebral disc disorders with radiculopathy, lumbar region; M51.17 Intervertebral disc disorders with radiculopathy, lumbosacral region; M96.1 Postlaminectomy syndrome, not elsewhere classified; G89.4 Chronic pain syndrome; Z96.82 Presence of neurostimulator
CPT/HCPCS: 72125; 72131

== ENCOUNTER → 2020-09-10 10:41 | Outpatient (CLI) | payer OTHER, MEDICAID, SELFPAY ==
--- NOTE | 2020-09-10 10:45 | DI.RAD.S_ITS ---
PROCEDURE: XR CERVICAL SPINE 4V OR 5V INDICATIONS: cervical radicualopathy TECHNIQUE: Five views of the cervical spine acquired. COMPARISON: [facility], CR, XR CERVICAL SPINE 2V OR 3V, 07/12/2019, 14:34. FINDINGS: Bones: No fractures or dislocations to the C7 level. Overall straightening of the normal cervical lordosis. There is vertebral body fusion of C5 and C6. Moderate-sized anterior and posterior endplate spurs at C6-7. Moderate disc height loss at this level. Oblique images demonstrate moderate bilateral foraminal narrowing at the C6-7 level mainly due to uncovertebral joint hypertrophy and endplate osteophytes. Soft tissues: No prevertebral soft tissue swelling. IMPRESSION: 1. Bilateral bony foraminal narrowing at the C6-7 level secondary to posterior endplate osteophytes/uncovertebral joint hypertrophy. 2. Cervical straightening of the cervical spine and C5-6 fusion appear stable. Dictated by: Myriam Ramos M.D. on 09/10/2020 at 11:04 Approved by: Myriam Ramos M.D. on 09/10/2020 at 11:07
== END ==
PROVIDERS: PCP Family Medicine; Referring Provider Physical Medicine & Rehabilitation; Visit Provider Physical Medicine & Rehabilitation
DX: M54.12 Radiculopathy, cervical region (principal)
CPT/HCPCS: 72050

== ENCOUNTER 2020-10-04 13:35 | Emergency (ER) | payer OTHER, MEDICAID, SELFPAY ==
[2020-10-04 13:43] VITALS: BP 138/72; PULSE 86; RESP 14; TEMP 37.2; O2SAT 99; BMI 34.1
--- NOTE | 2020-10-04 13:48 | DI.RAD.S_ITS ---
PROCEDURE: XR SHOULDER LT MIN 2V INDICATIONS: fall, shoulder pain TECHNIQUE: 3 views of the shoulder were acquired. COMPARISON: [facility], CR, XR SHOULDER RT MIN 2V, 07/12/2019, 14:34. FINDINGS: Bones: There is a left AC joint separation. No fractures. No dislocation at the glenohumeral joint. No suspicious bony lesions. Visualized ribs appear intact. Soft tissues: No suspicious soft tissue calcifications. IMPRESSION: Left AC joint separation. Dictated by: Khadar Holland M.D. on 10/04/2020 at 13:07 Approved by: Khadar Holland M.D. on 10/04/2020 at 13:08
--- NOTE | 2020-10-04 15:58 | ED_ITS ---
HPI - Extremity Injury (Upper) <TANIA Haque - Last Filed: 10/04/20 16:06> General Chief Complaint: Upper Respiratory Symptoms Stated Complaint: fell cant move left arm Time Seen by Provider: 10/04/20 13:43 Source: patient Mode of arrival: Ambulatory Limitations: no limitations History of Present Illness HPI narrative: The patient is a 45-year-old female former smoker who presents with a chief complaint of left shoulder injury. She states that she was drinking a lot with 1 of her girlfriends last night and apparently fell. She has no recollection of the event. She denies any abnormal head or neck pain. She states that she is only here for her left shoulder and has not concerned about any other possible injuries. She states that it hurts to move it around. No previous injuries to her left shoulder. She did have a bloody Sonja for pain control this morning. She does note that she has oxycodone for pain at home. She denies any pain of her left wrist. She does work as a manager equity of a bar. Related Data Home Medications Medication Instructions Recorded Confirmed omeprazole 20 mg capsule,delayed 40 mg PO DAILY 02/19/19 09/28/20 release Previous Rx's Medication Instructions Recorded sumatriptan succinate 50 mg tablet 50 mg PO ONCE #30 tab 04/27/20 mupirocin 2 % topical ointment 1 applic TOPICAL BID #30 g 07/08/20 baclofen 10 mg tablet 10 mg PO TID #60 tab 09/14/20 celecoxib 200 mg capsule 200 mg PO DAILY #90 cap 09/14/20 diazepam 10 mg tablet 10 mg PO .COMPLEX PRN #10 tab 09/14/20 gabapentin 300 mg capsule 300 mg PO TID #180 cap 09/14/20 duloxetine 30 mg capsule,delayed 30 mg PO DAILY #14 cap 09/28/20 release duloxetine 60 mg capsule,delayed 60 mg PO DAILY #90 cap 09/28/20 release fluoxetine 20 mg capsule 20 mg PO DAILY #20 cap 09/28/20 oxycodone-acetaminophen 5 mg-325 1 tab PO TID PRN #84 tab 09/28/20 mg tablet Allergies Allergy/AdvReac Type Severity Reaction Status Date / Time ibuprofen AdvReac Mild Ulcers Verified 10/04/20 13:43 Review of Systems <TANIA Haque - Last Filed: 10/04/20 16:06> Review of Systems Narrative: GENERAL: Denies chills, fatigue, malaise, fever, sweats. HEENT: Denies sinus pain, ear pain, sore throat, difficulty swallowing, dizziness. RESPIRATORY: Denies dyspnea, cough, wheezing, hemoptysis, sputum. CARDIOVASCULAR: Denies chest pain, palpitations, orthopnea, edema, GASTROINTESTINAL: Denies nausea, vomiting, abdominal pain, diarrhea, constipation, melena. : Denies dysuria, frequency, incontinence, hematuria, urinary retention. MUSCULOSKELETAL: See HPI SKIN: Denies rash, skin lesions, or other NEUROLOGIC: Denies weakness, headache, numbness, change in speech, confusion, seizures, incoordination. PSYCHIATRIC: No concerning psychosocial issues. 12 point review of systems is negative except for those stated above Patient History <TANIA Haque - Last Filed: 10/04/20 16:06> Medical History Anemia Anxiety due to invasive procedure Carpal tunnel syndrome Cervical spine disease Chronic back pain Chronic headaches Chronic pain syndrome Conjunctivitis Depression Dumping syndrome Fibromyalgia Foreign body (FB) in soft tissue History of chicken pox (~1980) History of painful menstruation Low back pain Lumbar post-laminectomy syndrome Migraines Ovarian cyst Right lateral epicondylitis Septic infrapatellar bursitis of left knee Sinusitis Ulcer Viral syndrome Surgical History History of (~1998) History of carpal tunnel surgery (~2007) History of cervical discectomy (~2005) History of lumbar discectomy (~2002) History of partial hysterectomy (~2013) Hx of hysterectomy, total Family History Father Cancer Mother Diabetes mellitus Brother No problems noted. Brother No problems noted. Sister No problems noted. Sister No problems noted. Grandfather No problems noted. Grandmother Breast cancer Grandfather No problems noted. Grandmother No problems noted. Son No problems noted. Social History household members: family Smoking Status: Former smoker Tobacco: How many years used: 30 alcohol intake: current Smoking Status: Former smoker alcohol intake frequency: 3 or more drinks per day Substance Use Type: does not use Exam <TANIA Haque - Last Filed: 10/04/20 16:06> Narrative Exam Narrative: GENERAL: This is a well-nourished, well-developed patient, in no acute distress HEAD: Atraumatic. Normocephalic. No temporal or scalp tenderness. EYES: Pupils equal round and reactive. Extraocular motions intact. No scleral icterus. No injection or drainage. ENT: Nose without bleeding, purulent drainage or septal hematoma. Wearing a mask Airway patent. NECK: Trachea midline. No JVD or lymphadenopathy. Supple, nontender, no meningeal signs. CARDIOVASCULAR: Regular rate and rhythm RESPIRATORY: Clear to auscultation. Breath sounds equal bilaterally. No wheezes, rales, or rhonchi. No cough. No increased respiratory effort. No accessory muscle use. No cough. No increased respiratory effort. No accessory muscle use. GASTROINTESTINAL: Abdomen soft, non-tender, nondistended. No hepato- splenomegaly, or palpable masses. No guarding. EXTREMITIES: Generalized pain to palpation noted left shoulder, no pain to palpation left wrist or elbow. Decreased range of motion left shoulder. Swelling noted over left AC joint. BACK: Nontender without deformity or crepitance. No flank tenderness. NEURO: AOx3. SKIN: No rash or erythema on visible skin Initial Vital Signs Initial Vital Signs: Vital Signs Temperature 99.0 F 10/04/20 13:43 Pulse Rate 86 10/04/20 13:43 Respiratory Rate 14 10/04/20 13:43 Blood Pressure 138/72 10/04/20 13:43 Pulse Oximetry 99 10/04/20 13:43 <Padmini Krueger DO - Last Filed: 10/04/20 18:17> Initial Vital Signs Initial Vital Signs: Vital Signs Temperature 99.0 F 10/04/20 13:43 Pulse Rate 86 10/04/20 13:43 Respiratory Rate 14 10/04/20 13:43 Blood Pressure 138/72 10/04/20 13:43 Pulse Oximetry 99 10/04/20 13:43 Procedures <TANIA Haque - Last Filed: 10/04/20 16:06> Orthopedic Splinting/Casting Injury #1: Side: left Upper Extremity Injury Location: shoulder Upper Extremity Immobilizer: sling/shoulder immobilizer Post splinting neuro exam: intact Post splinting vascular exam: intact Placed by: Nursing Scores <TANIA Haque - Last Filed: 10/04/20 16:06> GCS Kiersten coma scale eye opening: Spontaneous Kiersten coma scale verbal response: Orientated Pearcy coma scale motor response: Obey commands Kiersten coma scale total score: 15 Course <TANIA Haque - Last Filed: 10/04/20 16:06> Orders Ordered: ED Orders 10/04/20 13:48 XR shoulder LT min 2V Stat Discontinued Medications Hydrocodone Bitart/Acetaminophen (Hydrocodone/Acet 5/325 Tablet) 1 tab PO NOW ONE Stop: 10/04/20 14:14 Last Admin: 10/04/20 14:18 Dose: Not Given Documented by: TIRSO Vital Signs Vital signs: Vital Signs - 8 hr 10/04/20 13:43 Temperature 99.0 F Pulse Rate 86 Respiratory Rate 14 Blood Pressure 138/72 Pulse Oximetry 99 <Padmini Krueger DO - Last Filed: 10/04/20 18:17> Orders Ordered: ED Orders 10/04/20 13:48 XR shoulder LT min 2V Stat Discontinued Medications Hydrocodone Bitart/Acetaminophen (Hydrocodone/Acet 5/325 Tablet) 1 tab PO NOW ONE Stop: 10/04/20 14:14 Last Admin: 10/04/20 14:18 Dose: Not Given Documented by: TIRSO Vital Signs Vital signs: Vital Signs - 8 hr 10/04/20 13:43 Temperature 99.0 F Pulse Rate 86 Respiratory Rate 14 Blood Pressure 138/72 Pulse Oximetry 99 MDM - Extremity Injury (Upper) <TANIA Haque - Last Filed: 10/04/20 16:06> Imaging Data Extremity x-ray #1: Radiologist's Impression: [address] [place] [id number] ReportSigned Patient: Rosie White [facility]#: [id number]: 1975Acct:[id number]/Sex: 45 / FDate of Service: 10/04/20Loc: EDAccession Number: [id number] Procedure: XR shoulder LT min 2V Ordering Provider: Padmini Tom [employer] INST[employer] PROCEDURE: XR SHOULDER LT MIN 2V INDICATIONS: fall, shoulder pain TECHNIQUE: 3 views of the shoulder were acquired. COMPARISON: [facility], CR, XR SHOULDER RT MIN 2V, 07/12/2019, 14:34. FINDINGS: Bones: There is a left AC joint separation. No fractures. No dislocation at the glenohumeral joint. No suspicious bony lesions. Visualized ribs appear intact. Soft tissues: No suspicious soft tissue calcifications. IMPRESSION: Left AC joint separation. Dictated by: Khadar Holland M.D. on 10/04/2020 at 13:07 Approved by: Khadar Holland M.D. on 10/04/2020 at 13:08 [facility] Narrative Medical decision making narrative: The patient is a 45-year-old female who presents with a chief complaint of left shoulder pain after a fall while drinking alcohol last night. She declines any imaging other than that of her shoulder. X-ray shows AC separation. She is neurovascularly intact throughout her stay in the emergency department. She was placed in a sling. She declined pain medications the ER, stating that she has better medication at home. Discussed at length the importance of following up with primary care provider, also gave her contact information to [facility]. Patient has no questions or concerns upon discharge states understanding of return precautions as well as follow-up care. She did decline a work note. Discharge Plan Departure Patient Disposition: Home Clinical Impression: AC separation Qualifiers: Encounter type: initial encounter Laterality: left Qualified Code(s): S43.102A - Unspecified dislocation of left acromioclavicular joint, initial encounter Instructions: How to Use a Sling, How To Perform RICE (Rest, Ice, Compress, E levate), DI for AC Joint Separation Activity Restrictions/Additional Instructions: Thank you for trusting us with your care today As I discussed, your x-ray shows no acute fracture however it does show an AC separation. It is important that you follow up with primary care provider, especially if worsening or no improvement. There can be fractures that did not show up on initial x-ray. As discussed, please keep your arm in the sling. Please use ice packs and your pain medication as needed and able. Please come back to the emergency department for any acute concerns such as decreased circulation to your hand. Please follow-up with primary care provider in the next few days. I have also included contact information for [facility] in case he wants you to follow-up with them. Please come back to the emergency department for any acute concerns. Prescriptions: No Action mupirocin 2 % ointment 1 applic topical BID Qty: 30 RF: 0 omeprazole 20 mg capsule,delayed release(DR/EC) 40 mg PO DAILY RF: 0 fluoxetine 20 mg capsule 20 mg PO DAILY Qty: 20 RF: 0 duloxetine 30 mg capsule,delayed release(DR/EC) 30 mg PO DAILY Qty: 14 RF: 0 duloxetine 60 mg capsule,delayed release(DR/EC) 60 mg PO DAILY Qty: 90 RF: 1 oxycodone-acetaminophen 5-325 mg tablet 1 tab PO TID PRN (Reason: pain) Qty: 84 RF: 0 sumatriptan succinate 50 mg tablet 50 mg PO ONCE Qty: 30 RF: 0 celecoxib [Celebrex] 200 mg capsule 200 mg PO DAILY Qty: 90 RF: 2 gabapentin 300 mg capsule 300 mg PO TID Qty: 180 RF: 2 diazepam [Valium] 10 mg tablet 10 mg PO .COMPLEX PRN (Reason: sedation) Qty: 10 RF: 0 baclofen 10 mg tablet 10 mg PO TID Qty: 60 RF: 1 Referrals: [facility] [Provider Group] Juarez Hull DO [Primary Care Provider] - <Padmini Krueger DO - Last Filed: 10/04/20 18:17> Cosign ED Attending Cyndyature Attestation: I was immediately available in the department for consultation. Documentation has been reviewed.
== END 2020-10-04 14:36 | disposition home or self-care (01) ==
PROVIDERS: Emergency Provider Nurse Practitioner Family; PCP Family Medicine
DX: S43.102A Unspecified dislocation of left acromioclavicular joint, initial encounter (principal); W19.XXXA Unspecified fall, initial encounter
CPT/HCPCS: 73030; 99281; 99283

== ENCOUNTER → 2020-11-09 15:51 | Outpatient (CLI) | payer OTHER, MEDICAID, SELFPAY ==
[2020-11-09 17:00] LABS: COVID19 -Nasal RAPID Negative (Negative)
== END ==
PROVIDERS: PCP Family Medicine; Visit Provider Physical Medicine & Rehabilitation
DX: Z20.822 Contact with and (suspected) exposure to COVID-19 (principal)
CPT/HCPCS: 87635; C9803

== ENCOUNTER 2020-11-10 08:56 | Outpatient (CLI) | payer OTHER, MEDICAID, SELFPAY ==
[2020-11-10] VITALS (8 sets, daily range): BP systolic 112–151; BP diastolic 59–84; PULSE 78–97; RESP 13–21; TEMP 36.7; O2SAT 97–100
--- NOTE | 2020-11-10 08:58 | DI.RAD.S_ITS ---
PROCEDURE: PAIN C/T INTERLAMINAR INJECT INDICATIONS: SPINAL STENOSIS COMPARISON: [facility], CR, XR CERVICAL SPINE 4V OR 5V, 09/10/2020, 10:45. FINDINGS: Fluoroscopic spot filming was performed to verify placement of a spinal needle at the C6-C7 level, as labeled on the films. Appropriate location of the needle tip was confirmed by injection of iodinated contrast. IMPRESSION: No significant intraprocedural abnormality. Dictated by: Kevin Mcclure M.D. on 11/10/2020 at 9:36 Approved by: Kevin Mcclure M.D. on 11/10/2020 at 9:36
[2020-11-10] MEDS: fentaNYL 100 MCG/2 ML INJ 50 MCG IV (09:48)
[2020-11-10] MEDS: MIDAZOLAM 5 MG/5 ML VIAL IV (09:52)
[2020-11-10] MEDS: DEXAMETHASONE 10 MG/ML VIAL 30 MG INJ (09:57)
[2020-11-10] MEDS: BUPIVACAINE 0.25% (PF) VIAL 2 ML INJ (09:57)
[2020-11-10] MEDS: IOPAMIDOL 15 ML VIAL 3 ML INJ (09:57)
--- NOTE | 2020-11-10 10:05 | PM.PROC.IR.1 ---
Date/Time/Diagnoses Date of procedure: 11/10/20 Time of procedure: 10:05 Pre-procedure diagnosis: 1. CERVICAL STENOSIS, 2. CERVICAL HNP WITH UPPER EXTREMITY RADICULAR FEATURES Post-procedure diagnosis: same Procedure Notes Procedure: 1. FLUORSCOPICALLY GUIDED CONTRAST CONTROLLED INTERLAMINAR EPIDURAL STEROID INJECTION - C6/7 TL JESUS Indications: Rosie Villaseñor is referred by Dr. Hull for treatment of Cervical HNP with Upper Extremity Paresthesias. Physician: Benson Wright Total Fluoroscopy time (seconds): 23 Total sedation minutes: 12 Complications: none Procedure in detail & Post-procedure care: FINDINGS Cervical Stenosis due to disc deterioration and nerve root irritation and nerve root irritation DESCRIPTION OF PROCEDURE Fluoroscopically guided, contrast-controlled C6/7 translaminar epidural steroid injection with conscious sedation. Following review of allergy and review of potential side effects and complications, including, but not necessarily limited to, infection, allergic reaction, local tissue breakdown, temporary as well as permanent nerve injury, stroke, paralysis, and possible , the patient indicated that patient understood and agreed to proceed. An informed consent document was signed by the patient, witnessed by a nurse, and placed in the patient's chart. Additionally, other treatment options including modalities, medications, and physical therapy were reviewed with the patient. After review of previous anaesthesic history and IV conscious sedation the patient was deemed safe to proceed with today?s procedure with IV conscious sedation as ASA class II designation. Safety time-out was performed to confirm patient ID, procedure to be performed and site of procedure. IV sedation was accomplished with a combination of 4mg of Versed and 50mcg of Fentanyl administered by the RN after DO order, titrated to patient comfort during the course of the procedure while the patient remained responsive to all verbal commands. In the prone position, following sterile prep and drape of the cervical region, the C6/7 translaminar space was identified fluoroscopically. The skin was anesthetized via a 25-gauge 1.5-inch needle with 1% lidocaine solution. At this point, a 25-gauge, 2.5-inch short bevel spinal needle was atraumatically introduced and advanced under fluoroscopic guidance into epidural space at the C6/7 translaminar space. Depth was confirmed on lateral view. Radiological data, including multiple fluoroscopic views of the cervical spine, reveal a spinal needle at the C6/7 translaminar space. Lateral views then show placement of the needle in the epidural space. Subsequent views show contrast material flowing superiorly and inferiorly in the epidural space. DSA fluoroscopy with live contrast injection, once again, confirmed no vascular or intrathecal uptake. At this point, using loss of resistance technique with saline and air, the epidural space was entered. Following negative aspiration, injection of approximately 1.5 cc of Isovue-200 with live fluoroscopy in the AP view confirmed epidural flow in the epidural space without vascular or intrathecal uptake observed. Subsequently, a test dose of 1 cc of 1% lidocaine solution was injected and patient was observed for two minutes without signs or symptoms of complications, including abdominal pain, shortness of breath, bilateral upper or lower extremity weakness, nausea and vomiting, prior to steroid injection. At this point, 3cc or 30mg of dexamethasone was then injected without incident. The patient tolerated the procedure well without signs or symptoms of complications prior to being transferred to the recovery area for further monitoring, The patient was then transferred to the recovery area where they were observed for an appropriate period of time after the injection. The patient reported a VAS score of 6 prior to the procedure and a post-procedure VAS of 0. POST OP INSTRUCTIONS The patient was provided a Pain Log to continue to record their response to the target-specific procedure prior to follow-up visit with the referring provider. Additionally, specific post-injection care instructions and a contact number to our office were provided if concerns arise regarding possible complications associated with the procedure are suspected.
--- NOTE | 2020-11-10 10:13 | PC.NURSE ---
Patient refusing further BP. Reports it's too much, the pain is too much. Educated on importance to verify she is stable for discharge. Verbalized understanding and continues to refuse.
== END 2020-11-10 10:20 | disposition home or self-care (01) ==
LOC: RAD 08:57
PROVIDERS: PCP Family Medicine; Referring Provider Family Medicine; Visit Provider Physical Medicine & Rehabilitation
DX: M48.02 Spinal stenosis, cervical region (principal); M50.123 Cervical disc disorder at C6-C7 level with radiculopathy
CPT/HCPCS: 62321; 99152; J1100; J2250; J3010

== ENCOUNTER → 2020-11-30 07:50 | Outpatient (CLI) | payer OTHER, MEDICAID, SELFPAY ==
[2020-11-30 20:09] LABS: COVID19 -Nasal RAPID Negative (Negative)
== END ==
PROVIDERS: Family Provider Family Medicine; PCP Family Medicine; Visit Provider Physical Medicine & Rehabilitation
DX: Z20.822 Contact with and (suspected) exposure to COVID-19 (principal)
CPT/HCPCS: 87635; C9803

== ENCOUNTER 2020-12-01 10:41 | Outpatient (CLI) | payer OTHER, MEDICAID, SELFPAY ==
[2020-12-01] VITALS (9 sets, daily range): BP systolic 150–179; BP diastolic 79–107; PULSE 77–98; RESP 13–20; O2SAT 95–100
--- NOTE | 2020-12-01 10:42 | DI.RAD.S_ITS ---
PROCEDURE: PAIN L/S TRANSFORAMINAL INJECT INDICATIONS: SPONDYLOSIS COMPARISON: [facility], , PAIN C/T INTERLAMINAR INJECT, 11/10/2020, 9:53. FINDINGS: Fluoroscopic spot filming was performed to verify placement of a spinal needle at the L4-L5 level, as labeled on the films. Appropriate location of the needle tip was confirmed by injection of iodinated contrast. IMPRESSION: Intraprocedural examination within normal limits. Dictated by: Kevin Mcclure M.D. on 12/01/2020 at 12:48 Approved by: Kevin Mcclure M.D. on 12/01/2020 at 12:49
[2020-12-01] MEDS: fentaNYL 100 MCG/2 ML INJ 50 MCG IV (11:30)
[2020-12-01] MEDS: BETAMETHASONE 30 MG/5 ML MDV 6 MG INJ (11:34)
[2020-12-01] MEDS: BUPIVACAINE 0.25% (PF) VIAL 2 ML INJ (11:34)
[2020-12-01] MEDS: IOPAMIDOL 15 ML VIAL 3 ML INJ (11:34)
[2020-12-01] MEDS: DEXAMETHASONE 10 MG/ML VIAL 20 MG INJ (11:35)
[2020-12-01] MEDS: MIDAZOLAM 5 MG/5 ML VIAL IV (11:35)
--- NOTE | 2020-12-01 11:49 | P.PCN_ITS ---
Date/Time/Diagnoses Date of procedure: 12/01/20 Time of procedure: 11:49 Pre-procedure diagnosis: 1. FORAMINAL STENOSIS WITH LE SYMPTOMS Post-procedure diagnosis: same Procedure Notes Procedure: 1. FLUOROSCOPICALLY GUIDED CONTRAST CONTROLLED TRANSFORAMINAL EPIDURAL STEROID INJECTION - RIGHT L4/5 TFESI Indications: Rosie is referred by Dr. Hull for treatment of Foraminal Stenosis with Right LE Symptoms Physician: Benson Wright Total Fluoroscopy time (seconds): 8 Total sedation minutes: 10 Complications: none Procedure in detail & Post-procedure care: FINDINGS Foraminal Nerve Root Compression secondary to disc disease and facet hypertrophy DESCRIPTION OF PROCEDURE Following review of allergy and review of potential side effects and complications, including, but not necessarily limited to, infection, allergic reaction, local tissue breakdown, stroke, temporary or permanent nerve injury, paralysis, and possible , the patient indicated that the patient understood and agreed to proceed. An informed consent document was signed by the patient, witnessed by a nurse, and placed in the patient's chart. Additionally, other treatment options including medications, modalities, and physical therapy were reviewed with the patient. After review of previous anaesthesic history and IV conscious sedation the patient was deemed safe to proceed with today?s procedure with IV conscious sedation as ASA class II designation. Safety time-out was performed to confirm patient ID, procedure to be performed and site of procedure. IV sedation was accomplished with a combination of 4mg of Versed and 50mcg of Fentanyl was administered by the RN after DO order, titrated to patient comfort during the course of the procedure while the patient remained responsive to all verbal commands In the prone position following sterile prep and drape of the lumbar region, the right L4/5 posterior neuroforamen was identified fluoroscopically. The skin was anesthetized via a 25-gauge 1.5-inch needle with 1% lidocaine solution. At this point, a 22-gauge 5-inch spinal needle was atraumatically introduced and advanced under fluoroscopic guidance through the posterior right L4/5 neuroforamen to approximately the anterior aspect of the canal. Depth was confirmed on lateral view. Following negative aspiration, injection of approximately 1.5cc of Isovue 200 under live fluoroscopy in the AP view confirmed excellent flow along the nerve root, into the epidural space without vascular or intrathecal uptake observed Radiological data, including multiple fluoroscopic views of the lumbosacral spine, reveal a spinal needle at the right L4/5 posterior neuroforamen. Subsequent views show flow of contrast material flowing superiorly and inferiorly along the nerve root confirming epidural flow. Subsequently, a test dose of 1.5 cc of 1% lidocaine solution was administered and patient was observed for two minutes for signs or symptoms of complications, including abdominal pain, shortness of breath, bilateral upper or lower extremity weakness, nausea and vomiting, prior to steroid injection. At this point, a total of 3cc or 20mg of dexamethasone and 6mg of betamethasone was injected without incident. The procedure tolerated the procedure well without signs or symptoms of complications prior to transfer to the recovery area continued monitoring without incident. The patient was then transferred to the recovery area where they were observed for an appropriate time after the injection. The patient reported a VAS score of 7 prior to the procedure and a post- procedure VAS of 0. POST OP INSTRUCTIONS The patient was provided a Pain Log to continue to record their response to the target-specific procedure prior to follow-up visit with their referring physician. Additionally, specific post-injection care instructions and a contact number to our office were provided if concerns arise regarding possible complications associated with the procedure are suspected.
--- NOTE | 2020-12-01 15:38 | PC.NURSE ---
Notified by Twyla from Dr. Wright's clinic that Kasi had called with concerns about a headache. Spoke on the phone with Kasi regarding symptoms. Reported CASTANEDA at the base of the skull/neck radiating upwards with mild nausea and fatigue. No vision changes or other symptoms noted. Dr. Wright made aware - symptoms discussed. This RN called Kasi back with instructions that this is normal and to be expected. Also that she could manage her headache as per her usual migraine regimen. Patient reassured and questions answered.
== END 2020-12-01 12:12 | disposition home or self-care (01) ==
LOC: RAD 10:41
PROVIDERS: Family Provider Family Medicine; PCP Family Medicine; Referring Provider Family Medicine; Visit Provider Physical Medicine & Rehabilitation
DX: M48.061 Spinal stenosis, lumbar region without neurogenic claudication (principal); M51.16 Intervertebral disc disorders with radiculopathy, lumbar region
CPT/HCPCS: 64483; 99152; J0702; J1100; J2250; J3010

== ENCOUNTER → 2021-02-18 08:03 | Outpatient (CLI) | payer OTHER, MEDICAID, SELFPAY ==
[2021-02-18 09:20] LABS: COVID19 -Nasal RAPID POSITIVE (Negative)
== END ==
PROVIDERS: Family Provider Family Medicine; PCP Family Medicine; Visit Provider Physician Assistant
DX: U07.1 COVID-19 (principal)
CPT/HCPCS: 87635

== ENCOUNTER → 2021-10-18 09:38 | Outpatient (CLI) | payer OTHER, MEDICAID, SELFPAY ==
[2021-10-18 12:38] LABS: COVID-19 CEPHEID PCR (VTM/NP) Negative (Negative)
== END ==
PROVIDERS: Family Provider Family Medicine; PCP Family Medicine; Visit Provider Family Medicine Sleep Medicine
DX: Z20.822 Contact with and (suspected) exposure to COVID-19 (principal)
CPT/HCPCS: C9803; U0003; U0005

== ENCOUNTER → 2021-12-29 17:22 | Outpatient (CLI) | payer OTHER, MEDICAID, SELFPAY ==
--- NOTE | 2021-12-29 17:29 | DI.RAD.S_ITS ---
PROCEDURE: XR KNEE RT 3V INDICATIONS: Bilateral knee pain TECHNIQUE: 3 views of the knee were acquired. COMPARISON: None. FINDINGS: Bones: No fractures or dislocations. No suspicious bony lesions. Mild medial and patellofemoral compartment osteoarthritis. Soft tissues: No joint effusion. No suspicious soft tissue calcifications. IMPRESSION: Mild osteoarthritis. No fracture. No acute osseous lesion. If symptoms and/or clinical suspicion for pathology persists, further assessment with repeat radiographs (7-10 days) or advanced imaging (e.g. CT, MRI or bone scan) should be considered. Dictated by: Elena Sampson MD, PhD on 12/30/2021 at 9:34 Approved by: Elena Sampson MD, PhD on 12/30/2021 at 9:35
--- NOTE | 2021-12-29 17:29 | DI.RAD.S_ITS ---
PROCEDURE: XR KNEE LT 3V INDICATIONS: Bilateral knee pain TECHNIQUE: 3 views of the knee were acquired. COMPARISON: None. FINDINGS: Bones: No fractures or dislocations. No suspicious bony lesions. Mild medial and patellofemoral compartment osteoarthritis. Soft tissues: No joint effusion. No suspicious soft tissue calcifications. IMPRESSION: Osteoarthritis. No fracture. No acute osseous lesion. If symptoms and/or clinical suspicion for pathology persists, further assessment with repeat radiographs (7-10 days) or advanced imaging (e.g. CT, MRI or bone scan) should be considered. Dictated by: Elena Sampson MD, PhD on 12/30/2021 at 9:35 Approved by: Elena Sampson MD, PhD on 12/30/2021 at 9:36
== END ==
PROVIDERS: Family Provider Family Medicine; PCP Family Medicine; Referring Provider Family Medicine; Visit Provider Family Medicine
DX: M25.561 Pain in right knee (principal); M25.562 Pain in left knee; M17.0 Bilateral primary osteoarthritis of knee
CPT/HCPCS: 73562

== ENCOUNTER → 2022-04-08 16:16 | Outpatient (CLI) | payer OTHER, MEDICAID, SELFPAY | PROVIDERS: Family Provider Family Medicine; PCP Family Medicine; Referring Provider Orthopaedic Surgery; Visit Provider Orthopaedic Surgery | DX: M48.062 Spinal stenosis, lumbar region with neurogenic claudication (principal); M99.51 Intervertebral disc stenosis of neural canal of cervical region ==

== ENCOUNTER → 2022-05-06 14:52 | Outpatient (CLI) | payer OTHER, MEDICAID, SELFPAY ==
--- NOTE | 2022-05-06 14:55 | DI.CT.S_ITS ---
PROCEDURE: CT CERVIAL SPINE W CON INDICATIONS: Spinal stenosis, cervical region TECHNIQUE: After the administration of intravenous Isovue contrast, 3 mm thick sections acquired through the levels of interest. Sagittal and coronal reformats were then constructed. For radiation dose reduction, the following was used: automated exposure control. COMPARISON: [facility], CT, CT CERVICAL SPINE WO CON, 07/30/2020, 13:38. [facility], CR, XR CERVICAL SPINE 4V OR 5V, 09/10/2020, 10:45. FINDINGS: Image quality: Mild motion artifact can be seen. Bones: There is vertebral body fusion change at the C5-C6 level. A disc spacer is seen at this level. There is mild disc space narrowing at C4-C5 and at least moderate disc space narrowing seen at C6-C7. At C6-C7, post erected endplate osteophytes are seen. Thoracic spine stimulator leads are seen posteriorly and on the right, which extend up to the T3 level. Soft tissues: The lung apices are within normal limits. No soft tissue masses are seen. No jamie abnormal enhancement can be seen. The visualized thyroid is within normal limits. No significant vascular abnormality is identified. Borderline prominent lymph nodes can be seen on both sides of the neck, without jamie enlargement. IMPRESSION: Prior C5-C6 vertebral body fusion, with a disc spacer seen. Focal C6-C7 degenerative change. Stimulator leads extending superiorly to the T3 level. Dictated by: Kevin Mcclure M.D. on 05/06/2022 at 15:13 Approved by: Kevin Mcclure M.D. on 05/06/2022 at 15:15
== END ==
PROVIDERS: Family Provider Family Medicine; PCP Family Medicine; Referring Provider Orthopaedic Surgery; Visit Provider Orthopaedic Surgery
DX: M48.02 Spinal stenosis, cervical region (principal); M47.812 Spondylosis without myelopathy or radiculopathy, cervical region; Z98.1 Arthrodesis status; Z96.82 Presence of neurostimulator
CPT/HCPCS: 72126; Q9967

== ENCOUNTER 2022-05-12 08:33 | Outpatient (CLI) | payer OTHER, MEDICAID, SELFPAY ==
--- NOTE | 2022-05-12 | DI.CT.S_ITS ---
PROCEDURE: CT LUMBAR MYELOGRAM INDICATIONS: SPINAL STENOSIS TECHNIQUE: After the intrathecal administration of 15 mL intrathecal contrast, 3 mm thick sections acquired from T12 to the sacrum. Sagittal and coronal reformats were then constructed. For radiation dose reduction, the following was used: automated exposure control. COMPARISON: [facility], CT, CT LUMBAR SPINE WO CON, 07/30/2020, 13:38. FINDINGS: Image quality: Excellent. Bones: Spinal alignment is normal. No spondylolysis or spondylolisthesis. No suspicious bony lesions. No acute fractures. Multilevel disc space narrowing is present most severe at L4-5. Soft tissues: No retroperitoneal masses. Visualized aorta demonstrates normal caliber. T12-L1: Normal appearance. L1-L2: No disc bulge, spinal stenosis or foraminal narrowing. No interval change. L2-L3: Trace disc bulge without spinal stenosis or foraminal narrowing. L3-L4: Mild disc bulge with posterior left paracentral protrusion and what appears to be superimposed extrusion. It is causing moderate spinal stenosis, unchanged. Minimal bilateral foraminal narrowing. L4-L5: Mild disc bulge with small posterior central protrusion. Moderate bilateral foraminal narrowing with mild facet hypertrophy. L5-S1: Mild disc bulge with posterior protrusion and what appears to be extrusion. Eump-pi-jvtyjldl spinal stenosis. Sfjn-wz-xpsnmgot bilateral foraminal narrowing, unchanged. Miscellaneous: Nerve roots appear unremarkable throughout. No nerve root clumping to suggest arachnoiditis. IMPRESSION: Multilevel disc bulges as well as superimposed extrusions and protrusions notably at L3-4 and L5-S1. Multilevel foraminal narrowing most notable at L4-5 secondary to facet arthropathy. Spinal stenosis is present most prominent at L3-4 secondary to disc bulge. Dictated by: Deandra William M.D. on 05/12/2022 at 14:25 Approved by: Deandra William M.D. on 05/12/2022 at 15:03
--- NOTE | 2022-05-12 | DI.RAD.S_ITS ---
PROCEDURE: FL INJECT SPINE FOR CT MYELO INDICATIONS: SPINAL STENOSIS COMPARISON: [facility], CR, XR LUMBAR SPINE 2-3V, 11/13/2019, 11:58. [facility], CT, CT LUMBAR SPINE WO CON, 07/30/2020, 13:38. TECHNIQUE: The indications, alternatives, benefits, risks and complications of the procedure were explained to the patient. Written informed consent was obtained and placed in the chart. The patient was placed in a prone position on the fluoroscopy table, and a level was chosen for percutaneous access under fluoroscopic guidance. The skin was prepped and draped in a sterile fashion. After local anaesthetic, a spinal needle was then used to enter the intrathecal space. Of note, return of cerebrospinal fluid was not seen, possibly related to low CSF pressure. 12 mL of Isovue M-300 were administered intrathecally under fluoroscopic visualization. The needle was then withdrawn, and a bandage applied to the puncture site. The patient was then placed in a Trendelenburg position to allow contrast migration up to the cervical spine under intermittent fluoroscopic supervision. FINDINGS: Spinal stimulator leads are present overlying the lumbar spine. Access level: L4-5 (after failed attempts at L5-S1) Medications: 1% lidocaine for local anaesthesia. Complications: None. Patient was transferred to CT for subsequent CT myelogram. IMPRESSION: Successful fluoroscopically guided administration of intrathecal iodinated contrast material for CT myelogram. Dictated by: Omer Frye M.D. on 05/12/2022 at 12:29 Approved by: Omer Frye M.D. on 05/12/2022 at 12:37
[2022-05-12 08:47] VITALS: BP 124/92; PULSE 102; RESP 16; TEMP 36.2; O2SAT 100; BMI 32.4
[2022-05-12 09:31] LABS: Hematocrit 39.2 % (36-46); Platelet Count 297 X10^3/uL (150-400)
[2022-05-12 09:33] LABS: PTT Partial Thromboplastin Tim 34 SECONDS (26-36)
[2022-05-12 11:00] VITALS: BP 135/85; PULSE 78; RESP 16; TEMP 36.7; O2SAT 98
--- NOTE | 2022-05-12 11:16 | SUR.PHASEII ---
11:[address] after procedure in stable condition; denies nausea and has no headache at this time; patient c/o low back pain which is chronic for patient. VSS. Instructed patient of need to lie flat for the next 48 hours as much as possible and to consume 3000 to 5000 mls of fluid over the next 24 hours. Call light within reach of patient. Lights turned down for comfort.
[2022-05-12 12:05] VITALS: BP 126/72; PULSE 74; RESP 16; TEMP 36.7; O2SAT 98
[2022-05-12 12:55] VITALS: BP 139/80; PULSE 92; RESP 14; TEMP 36.6; O2SAT 98
== END 2022-05-12 13:05 | disposition home or self-care (01) ==
LOC: OR 08:34
PROVIDERS: Family Provider Family Medicine; PCP Family Medicine; Referring Provider Orthopaedic Surgery; Visit Provider Orthopaedic Surgery
DX: M48.061 Spinal stenosis, lumbar region without neurogenic claudication (principal)
CPT/HCPCS: 62284; 72133; 77003; 85014; 85049; 85610; 85730

== ENCOUNTER → 2022-06-23 13:22 | Outpatient (CLI) | payer OTHER, MEDICAID, SELFPAY ==
[2022-06-23 13:41] LABS: Hematocrit 39.3 % (36-46); Platelet Count 301 X10^3/uL (150-400)
[2022-06-23 13:48] LABS: Prothrombin Time 11.4 SECONDS (10.1-12.7)
[2022-06-23 13:51] LABS: PTT Partial Thromboplastin Tim 35 SECONDS (26-36)
== END ==
PROVIDERS: Radiology Diagnostic Radiology; Family Provider Family Medicine; PCP Family Medicine; Referring Provider Family Medicine; Visit Provider Family Medicine
DX: G89.4 Chronic pain syndrome (principal)
CPT/HCPCS: 36415; 85014; 85049; 85610; 85730

== ENCOUNTER → 2022-08-09 14:50 | Outpatient (CLI) | payer OTHER, MEDICAID, SELFPAY | PROVIDERS: Family Provider Family Medicine; PCP Family Medicine; Referring Provider Family Medicine; Visit Provider Family Medicine | DX: R20.0 Anesthesia of skin (principal); R20.2 Paresthesia of skin | CPT/HCPCS: 93005 ==

== ENCOUNTER → 2023-11-19 14:42 | Outpatient (CLI) | payer OTHER, MEDICAID, SELFPAY ==
--- NOTE | 2023-11-19 | DI.CT.S_ITS ---
PROCEDURE: CT CERVICAL SPINE WO CON INDICATIONS: NECK PAIN TECHNIQUE: Noncontrast 3 mm thick sections acquired from the skull base to the T4 level. Sagittal and coronal reformats were then constructed. For radiation dose reduction, the following was used: automated exposure control, adjustment of mA and/or kV according to patient size. COMPARISON: [facility], CT, CT CERVIAL SPINE W CON, 05/06/2022, 15:23. [facility], CT, CT CERVICAL SPINE WO CON, 07/30/2020, 13:38. FINDINGS: Image quality: Excellent. Bones: There is been interval anterior fusion at C6-7 when compared with the prior CT dated May 06, 2022. There increased degenerative changes at C6-7 when compared with the prior CT. No acute fracture or dislocation. No suspicious bony lesions. The superior and inferior cervical intervertebral disc spaces are well preserved. No significant endplate sclerosis, osteophytosis, or facet sclerosis. Soft tissues: Prevertebral soft tissues are normal in thickness. No paravertebral hematomas. No apical pneumothoraces. IMPRESSION: 1. Postoperative change as above with increased interval degenerative changes at C6-7 when compared with the CT from May 06, 2022. Dictated by: Tamiko Glez M.D. on 11/20/2023 at 8:20 Approved by: Tamiko Glez M.D. on 11/20/2023 at 8:24
--- NOTE | 2023-11-19 | DI.MRI.S_ITS ---
PROCEDURE: MR CERVICAL SPINE WO CON INDICATIONS: NECK PAIN TECHNIQUE: Noncontrast sagittal T1 spin echo and T2 fast spin echo, sagittal STIR, foraminal oblique sagittal T2 fast spin echo, and axial gradient echo or T2 fast spin echo through the cervical spine. COMPARISON: [facility], CT, CT CERVICAL SPINE WO CON, 11/19/2023, 15:34. FINDINGS: Image quality: This study is markedly limited by patient motion artifact. Alignment and Curvature: There is normal bony alignment. Patient is status post C5-6 and C6-7 discectomy and C6-7 anterior fusion. Bone Marrow: Marrow demonstrates normal overall signal. Spinal Cord: Visualized spinal cord has normal size and signal. No cerebellar tonsillar herniation. Paraspinous Soft Tissues: No paravertebral masses. Prevertebral soft tissues are normal in thickness. C2-C3: Normal appearance. C3-C4: Mild disc desiccation and height loss. Broad-based disc bulge. No canal stenosis. Moderate right and mild left foraminal stenosis. C4-C5: Moderate disc desiccation and height loss. Broad-based disc bulge. Effacement of the CSF space and moderate canal stenosis. Probable severe bilateral foraminal stenosis which is poorly characterized. C5-C6: Status post discectomy. Mild canal stenosis. Mild bilateral foraminal stenosis. C6-C7: Status post discectomy. Moderate canal stenosis. Moderate to severe bilateral foraminal stenosis. C7-T1: Normal appearance. IMPRESSION: 1. Markedly limited study given patient motion artifact. 2. Probable severe bilateral foraminal stenosis at C4-5, moderate right foraminal stenosis at C3-4, and moderate to severe bilateral foraminal stenosis at C6-7. 3. Moderate canal stenosis at C6-7 and mild canal stenosis at C5-6. Dictated by: Tamiko Glez M.D. on 11/20/2023 at 9:57 Approved by: Tamiko Glez M.D. on 11/20/2023 at 10:11
== END ==
PROVIDERS: Family Provider Family Medicine; PCP Family Medicine; Referring Provider Orthopaedic Surgery; Visit Provider Orthopaedic Surgery
DX: S16.1XXD Strain of muscle, fascia and tendon at neck level, subsequent encounter (principal); M47.812 Spondylosis without myelopathy or radiculopathy, cervical region; M48.02 Spinal stenosis, cervical region; Z98.1 Arthrodesis status
CPT/HCPCS: 72125; 72141